=== PATIENT | female | born 1955 | race Caucasian/White ===

== ENCOUNTER 2021-08-02 14:49 | Inpatient (IN) ==
[2021-08-02 15:52] LABS: Bilirubin,Urine Negative (Negative); Blood,Urine Large (Negative); Clarity,Urine Ex.Turbid (Clear); Color,Urine Yellow (Yellow); Glucose,Urine (UA) Normal (Normal); Ketones,Urine 10 mg/dL (Negative); Leukocyte Esterase,Urine Large (Negative); Nitrite,Urine Negative (Negative); Protein,Urine >=600 mg/dL (Neg-Trace); Specific Gravity,Urine 1.025 (1.010-1.025); Urobilinogen,Urine Normal (Normal)
[2021-08-02 15:54] LABS: Bacteria,Urine Present per hpf (None-Few); Calcium Oxalate Crystals,Urine Present per hpf; Hyaline Casts,Urine Present per lpf (None Seen); Transitional Epi Cells,Urine Present per hpf (None-Few)
[2021-08-02 15:55] LABS: RBC,Urine Present per hpf (0-3); Renal Epithelial Cells,Urine Present per hpf (None-Few); WBC,Urine Present per hpf (0-3)
[2021-08-02 15:56] LABS: Uric Acid Crystals,Urine Present per hpf
[2021-08-02 16:22] LABS: Basophils # 0.1 K/mcL (0.0-0.2); Basophils % 0.3 %; Eosinophils % 0.1 %; Hematocrit 32.4 % (35.3-44.9); Hemoglobin 9.6 g/dL (11.5-15.4); Immature Granulocytes % 0.7 % (0-4); Lymphocytes # 2.4 K/mcL (0.6-4.6); Lymphocytes % 11.1 %; Mean Corpuscular HGB Conc 29.6 g/dL (31.6-35.5); Mean Corpuscular Hemoglobin 29.3 pg (28.0-33.3); Mean Corpuscular Volume 98.8 fL (83.0-100.0); Mean Platelet Volume 9.6 fL (9.4-12.4); Monocytes # 0.8 K/mcL (0.0-1.3); Monocytes % 3.7 %; Neutrophils # 17.8 K/mcL (1.6-8.9); Platelet Count 504 K/mcL (140-400); Red Blood Count 3.28 M/mcL (3.82-4.97); Red Cell Distribution Width 18.6 % (11.5-14.5); Segmented Neutrophils % 84.1 %; White Blood Count 21.2 K/mcL (4.3-11.1)
[2021-08-02 16:34] LABS: BUN/Creatinine Ratio 37 (6-26); Blood Urea Nitrogen 46 mg/dL (8-23); Calcium 11.3 mg/dL (8.6-10.3); Carbon Dioxide 17 mEq/L (23-29); Chloride 102 mEq/L (98-107); Glucose 82 mg/dL (70-105); Osmolality,Calculated 283 (280-300); Potassium 5.6 mEq/L (3.5-5.1); Sodium 131 mEq/L (136-145); eGFR For African Americans 52 (> 60); eGFR For Non-African Americans 43 (> 60)
[2021-08-02 17:54] LABS: Troponin I < 0.03 ng/mL (< 0.04)
[2021-08-02 19:37] LABS: Alanine Aminotransferase 10 Units/L (7-52); Albumin 3.6 g/dL (3.5-5.7); Albumin/Globulin Ratio 1.1 (1.1-2.2); Alkaline Phosphatase 121 Units/L (34-104); Aspartate Amino Transferase 21 Units/L (13-39); Bilirubin,Direct 0.2 mg/dL (0.0-0.2); Bilirubin,Indirect 0.1 mg/dL (0.0-1.0); Bilirubin,Total 0.3 mg/dL (0.3-1.0); Globulin 3.2 g/dL (2.4-3.5); Total Protein 6.8 g/dL (6.4-8.9)
[2021-08-02] MEDS ORDERED: Isovue-370 500 ML BOTTLE IVP ONE (20:32)
[2021-08-02 20:33] LABS: Influenza A PCR Negative (Negative); Influenza B PCR Negative (Negative); Resp. Syncytial Virus PCR Negative (Negative)
[2021-08-02] MEDS ORDERED: 0.9 % Sodium Chloride 1,000 ML IVC ONE (20:34)
[2021-08-02 20:39] LABS: SARS-CoV-2 by PCR (In House) Positive (Negative)
[2021-08-02] MEDS ORDERED: Cefepime HCl 2,000 MG in 0.9 % Sodium Chloride Mini Bag 100 ML IVPB STA (21:59)
[2021-08-02] MEDS ORDERED: Vancomycin 1,250 MG/262.5 ML IV.SOLN IVPB ONE (22:03)
[2021-08-02] MEDS ORDERED: *HR* Heparin 5,000 UNIT/ML VIAL IVP PRN ×2 (23:03)
[2021-08-02] MEDS ORDERED: *HR* Heparin 5,000 UNIT/ML VIAL IVP ONE (23:03)
[2021-08-03] MEDS: Heparin 25,000UNIT/250ML 1/2NS 25,000 UNIT/250 ML IV.SOLN IVC SCH (00:23)
[2021-08-03] MEDS ORDERED: 0.9 % Sodium Chloride 1,000 ML IVC ONE (00:42)
[2021-08-03] MEDS ORDERED: Acetaminophen 325 MG TABLET PO PRN (01:02)
[2021-08-03] MEDS ORDERED: Naloxone 0.4 MG/ML INJ IVP PRN (01:02)
[2021-08-03] MEDS ORDERED: Ondansetron ODT 4 MG TAB.RAPDIS SL PRN (01:02)
[2021-08-03] MEDS ORDERED: *HR* OxyCODONE Immed Rel 5 MG TABLET PO PRN (03:43)
[2021-08-03] MEDS ORDERED: D5% in Water 1,000 ML IVC PRN (03:53)
[2021-08-03] MEDS ORDERED: Dextrose Gel 15 GM/37.5 ML TUBE PO PRN ×2 (03:53)
[2021-08-03 04:44] LABS: Basophils # 0.1 K/mcL (0.0-0.2); Basophils % 0.2 %; Eosinophils % 0.2 %; Hematocrit 27.5 % (35.3-44.9); Immature Granulocytes % 0.7 % (0-4); Lymphocytes % 9.8 %; Mean Corpuscular HGB Conc 29.1 g/dL (31.6-35.5); Mean Corpuscular Hemoglobin 30.1 pg (28.0-33.3); Mean Corpuscular Volume 103.4 fL (83.0-100.0); Mean Platelet Volume 9.6 fL (9.4-12.4); Monocytes # 0.6 K/mcL (0.0-1.3); Monocytes % 2.9 %; Neutrophils # 17.6 K/mcL (1.6-8.9); Platelet Count 408 K/mcL (140-400); Red Blood Count 2.66 M/mcL (3.82-4.97); Red Cell Distribution Width 18.8 % (11.5-14.5); Segmented Neutrophils % 86.2 %; White Blood Count 20.5 K/mcL (4.3-11.1)
[2021-08-03 04:51] LABS: INR 1.5; Prothrombin Time 16.7 Seconds (9.4-12.1)
[2021-08-03 04:52] LABS: Heparin anti-factor XA UFH 1.26 IU/mL (0.30-0.70)
[2021-08-03 05:03] LABS: Alanine Aminotransferase 7 Units/L (7-52); Albumin 2.8 g/dL (3.5-5.7); Alkaline Phosphatase 89 Units/L (34-104); Aspartate Amino Transferase 16 Units/L (13-39); BUN/Creatinine Ratio 38 (6-26); Bilirubin,Total 0.3 mg/dL (0.3-1.0); Blood Urea Nitrogen 36 mg/dL (8-23); C-Reactive Protein 140 mg/L (Less than 10); Carbon Dioxide 13 mEq/L (23-29); Chloride 111 mEq/L (98-107); Globulin 2.7 g/dL (2.4-3.5); Glucose 73 mg/dL (70-105); Magnesium 1.7 mg/dL (1.6-2.6); Osmolality,Calculated 283 (280-300); Phosphorous 2.6 mg/dL (2.7-4.5); Potassium 4.3 mEq/L (3.5-5.1); Sodium 133 mEq/L (136-145); Total Protein 5.5 g/dL (6.4-8.9); eGFR For African Americans > 60 (> 60); eGFR For Non-African Americans 59 (> 60)
[2021-08-03 05:20] LABS: Ferritin 227 ng/mL (10-120)
[2021-08-03 06:16] LABS: Estimated Average Glucose 71 mg/dl; Hemoglobin A1C 4.1 %
[2021-08-03] MEDS: Celecoxib 200 MG CAPSULE PO SCH ×2 (07:49→08:24)
[2021-08-03] MEDS: Piperacillin/Tazobactam 3.375 GM in 0.9 % Sodium Chloride Mini Bag 100 ML IVPB SCH ×2 (07:50→18:04)
[2021-08-03] MEDS: Azithromycin 250 MG TABLET PO SCH ×2 (07:50→08:24)
[2021-08-03] MEDS: Ipratropium 1 PUFF INHALER IH SCH ×5 (08:10→23:28)
[2021-08-03] MEDS: Insulin LISPRO 300 UNITS/3 ML VIAL SUBQ SCH ×3 (08:15→18:05)
[2021-08-03] MEDS: (Vortioxetine Hydrobromide [Trintellix] 20 MG Tablet) PO SCH (08:22)
[2021-08-03] MEDS ORDERED: *HR* Metoprolol 5 MG/5 ML VIAL IVP ONE ×3 (08:22→23:44)
[2021-08-03] MEDS ORDERED: Dexamethasone Sodium Phos/PF 10 MG/ML VIAL IVP SCH (09:00)
[2021-08-03] MEDS ORDERED: 0.9 % Sodium Chloride 1,000 ML IVC SCH (09:15)
[2021-08-03] MEDS ORDERED: 0.9 % Sodium Chloride 500 ML IV ONE ×2 (10:14→11:17)
[2021-08-03] MEDS: *HR* Metoprolol 5 MG/5 ML VIAL IVP PRN ×2 (12:05→18:25)
[2021-08-03] MEDS ORDERED: Albumin 25% 25gram/100mL 25 GM/100 ML IV.SOLN IVPB ONE (21:01)
[2021-08-03] MEDS: Ascorbic Acid 500 MG TABLET PO SCH (21:21)
[2021-08-03 21:47] LABS: ABG Base Excess -15 mEq/L (-2 to 3); ABG HCO3 9 mEq/L (21-27); ABG Oxygen Saturation 95 % (95-98); ABG PCO2 15 mmHg (35-45); ABG PH 7.38 pH Units (7.32-7.45); ABG PO2 72 mmHg (85-104); ABG TCO2 9 mEq/L (20-26)
[2021-08-03] MEDS ORDERED: Sodium Bicarbonate 50 MEQ/50 ML VIAL IVP ONE (22:12)
[2021-08-03 22:50] LABS: Hematocrit 25.5 % (35.3-44.9); Hemoglobin 7.6 g/dL (11.5-15.4); Mean Corpuscular HGB Conc 29.8 g/dL (31.6-35.5); Mean Corpuscular Hemoglobin 30.2 pg (28.0-33.3); Mean Corpuscular Volume 101.2 fL (83.0-100.0); Mean Platelet Volume 9.1 fL (9.4-12.4); Platelet Count 421 K/mcL (140-400); Red Blood Count 2.52 M/mcL (3.82-4.97); Red Cell Distribution Width 18.7 % (11.5-14.5); White Blood Count 21.2 K/mcL (4.3-11.1)
[2021-08-03] MEDS ORDERED: Isovue-370 500 ML BOTTLE IVP ONE (23:15)
[2021-08-03 23:25] LABS: BUN/Creatinine Ratio 32 (6-26); Blood Urea Nitrogen 21 mg/dL (8-23); Calcium 10.5 mg/dL (8.6-10.3); Carbon Dioxide 9 mEq/L (23-29); Chloride 113 mEq/L (98-107); Glucose 124 mg/dL (70-105); Magnesium 1.5 mg/dL (1.6-2.6); Osmolality,Calculated 288 (280-300); Phosphorous 1.5 mg/dL (2.7-4.5); Potassium 4.5 mEq/L (3.5-5.1); Sodium 137 mEq/L (136-145); eGFR For African Americans > 60 (> 60); eGFR For Non-African Americans > 60 (> 60)
[2021-08-04] MEDS ORDERED: Vancomycin 1,250 MG/262.5 ML IV.SOLN IVPB SCH
[2021-08-04] MEDS ORDERED: Sodium Bicarbonate 75 MEQ in 0.45 % Sodium Chloride 1,000 ML IVC SCH (00:24)
[2021-08-04] MEDS ORDERED: Magnesium Sulfate 1 GM/102 ML PIGGYBACK IVPB ONE ×2 (00:25→21:17)
[2021-08-04] MEDS: Heparin 25,000UNIT/250ML 1/2NS 25,000 UNIT/250 ML IV.SOLN IVC SCH (01:48)
[2021-08-04] MEDS: Piperacillin/Tazobactam 3.375 GM in 0.9 % Sodium Chloride Mini Bag 100 ML IVPB SCH ×3 (02:34→16:09)
[2021-08-04] MEDS: *HR* Metoprolol 5 MG/5 ML VIAL IVP PRN ×2 (02:48→11:54)
[2021-08-04 03:09] LABS: Basophils % 0.2 %; Lymphocytes % 6.1 %; Mean Corpuscular Volume 106.1 fL (83.0-100.0)
[2021-08-04 03:10] LABS: Hematocrit 27.7 % (35.3-44.9); Hemoglobin 7.9 g/dL (11.5-15.4); Lymphocytes # 1.2 K/mcL (0.6-4.6); Mean Corpuscular HGB Conc 28.5 g/dL (31.6-35.5); Mean Corpuscular Hemoglobin 30.3 pg (28.0-33.3); Mean Platelet Volume 9.4 fL (9.4-12.4); Monocytes # 0.5 K/mcL (0.0-1.3); Monocytes % 2.5 %; Neutrophils # 17.3 K/mcL (1.6-8.9); Platelet Count 443 K/mcL (140-400); Red Blood Count 2.61 M/mcL (3.82-4.97); Red Cell Distribution Width 18.9 % (11.5-14.5); Segmented Neutrophils % 90.2 %; White Blood Count 19.2 K/mcL (4.3-11.1)
[2021-08-04 03:27] LABS: Alanine Aminotransferase 7 Units/L (7-52); Albumin 3.7 g/dL (3.5-5.7); Albumin/Globulin Ratio 1.3 (1.1-2.2); Alkaline Phosphatase 96 Units/L (34-104); Aspartate Amino Transferase 16 Units/L (13-39); BUN/Creatinine Ratio 29 (6-26); Bilirubin,Total 0.3 mg/dL (0.3-1.0); Blood Urea Nitrogen 18 mg/dL (8-23); Calcium 10.6 mg/dL (8.6-10.3); Carbon Dioxide 11 mEq/L (23-29); Chloride 113 mEq/L (98-107); Globulin 2.8 g/dL (2.4-3.5); Glucose 89 mg/dL (70-105); Osmolality,Calculated 291 (280-300); Potassium 4.3 mEq/L (3.5-5.1); Sodium 140 mEq/L (136-145); Total Protein 6.5 g/dL (6.4-8.9); eGFR For African Americans > 60 (> 60); eGFR For Non-African Americans > 60 (> 60)
[2021-08-04] MEDS: Ipratropium 1 PUFF INHALER IH SCH ×5 (03:56→20:28)
[2021-08-04] MEDS: Azithromycin 250 MG TABLET PO SCH (05:03)
[2021-08-04] MEDS: Insulin LISPRO 300 UNITS/3 ML VIAL SUBQ SCH ×3 (08:09→20:59)
[2021-08-04] MEDS: (Vortioxetine Hydrobromide [Trintellix] 20 MG Tablet) PO SCH (11:47)
[2021-08-04] MEDS: Magnesium Oxide 400 MG TABLET PO SCH (11:47)
[2021-08-04] MEDS: Ascorbic Acid 500 MG TABLET PO SCH ×2 (11:48→21:00)
[2021-08-04] MEDS: Cholecalciferol (D-3) 1,000 UNIT (25MCG) TABLET PO SCH (11:48)
[2021-08-04 12:15] LABS: ABG Base Excess -13 mEq/L (-2 to 3); ABG HCO3 10 mEq/L (21-27); ABG Oxygen Saturation 94 % (95-98); ABG PCO2 14 mmHg (35-45); ABG PH 7.45 pH Units (7.32-7.45); ABG PO2 65 mmHg (85-104); ABG TCO2 10 mEq/L (20-26)
[2021-08-04 12:45] LABS: Hematocrit 27.8 % (35.3-44.9); Hemoglobin 8.2 g/dL (11.5-15.4)
[2021-08-04 13:26] LABS: BUN/Creatinine Ratio 24 (6-26); Blood Urea Nitrogen 13 mg/dL (8-23); Calcium 10.5 mg/dL (8.6-10.3); Carbon Dioxide 12 mEq/L (23-29); Chloride 112 mEq/L (98-107); Glucose 109 mg/dL (70-105); Osmolality,Calculated 295 (280-300); Potassium 4.2 mEq/L (3.5-5.1); Sodium 142 mEq/L (136-145); eGFR For African Americans > 60 (> 60); eGFR For Non-African Americans > 60 (> 60)
[2021-08-04] MEDS ORDERED: *HR* LORazepam 2 MG/ML VIAL IVP ONE (15:18)
[2021-08-04] MEDS: *HR* Metoprolol 5 MG/5 ML VIAL IVP SCH ×2 (18:46→23:15)
[2021-08-04 23:45] LABS: ABG Base Excess -8 mEq/L (-2 to 3); ABG HCO3 15 mEq/L (21-27); ABG Oxygen Saturation 97 % (95-98); ABG PCO2 23 mmHg (35-45); ABG PH 7.43 pH Units (7.32-7.45); ABG PO2 81 mmHg (85-104); ABG TCO2 16 mEq/L (20-26); Blood Gas Modality 3LPM
[2021-08-05] MEDS: Ipratropium 1 PUFF INHALER IH SCH ×6 (00:20→19:49)
[2021-08-05] MEDS: Piperacillin/Tazobactam 3.375 GM in 0.9 % Sodium Chloride Mini Bag 100 ML IVPB SCH ×4 (01:23→23:42)
[2021-08-05 01:33] LABS: Magnesium 1.8 mg/dL (1.6-2.6); Phosphorous 1.9 mg/dL (2.7-4.5)
[2021-08-05] MEDS: Azithromycin 250 MG TABLET PO SCH (05:03)
[2021-08-05] MEDS: *HR* Metoprolol 5 MG/5 ML VIAL IVP SCH ×4 (05:18→23:38)
[2021-08-05] MEDS: Celecoxib 200 MG CAPSULE PO SCH (05:19)
[2021-08-05] MEDS: (Vortioxetine Hydrobromide [Trintellix] 20 MG Tablet) PO SCH (07:41)
[2021-08-05] MEDS: Ascorbic Acid 500 MG TABLET PO SCH ×3 (07:41→21:17)
[2021-08-05] MEDS: Magnesium Oxide 400 MG TABLET PO SCH (07:41)
[2021-08-05] MEDS: Cholecalciferol (D-3) 1,000 UNIT (25MCG) TABLET PO SCH (07:42)
[2021-08-05] MEDS ORDERED: 0.9 % Sodium Chloride 500 ML ONE (07:49)
[2021-08-05] MEDS: Insulin LISPRO 300 UNITS/3 ML VIAL SUBQ SCH ×3 (07:56→16:26)
[2021-08-05 08:25] LABS: Basophils % 0.2 %; Hematocrit 25.7 % (35.3-44.9); Hemoglobin 7.7 g/dL (11.5-15.4); Immature Granulocytes % 2.3 % (0-4); Lymphocytes # 1.3 K/mcL (0.6-4.6); Lymphocytes % 13.5 %; Mean Corpuscular Hemoglobin 29.5 pg (28.0-33.3); Mean Corpuscular Volume 98.5 fL (83.0-100.0); Mean Platelet Volume 8.8 fL (9.4-12.4); Monocytes # 0.4 K/mcL (0.0-1.3); Monocytes % 3.9 %; Neutrophils # 7.7 K/mcL (1.6-8.9); Platelet Count 381 K/mcL (140-400); Red Blood Count 2.61 M/mcL (3.82-4.97); Red Cell Distribution Width 19.1 % (11.5-14.5); Segmented Neutrophils % 80.1 %; White Blood Count 9.6 K/mcL (4.3-11.1)
[2021-08-05 09:16] LABS: Alanine Aminotransferase 8 Units/L (7-52); Albumin 3.2 g/dL (3.5-5.7); Albumin/Globulin Ratio 1.1 (1.1-2.2); Alkaline Phosphatase 93 Units/L (34-104); Aspartate Amino Transferase 17 Units/L (13-39); BUN/Creatinine Ratio 24 (6-26); Bilirubin,Total 0.3 mg/dL (0.3-1.0); Blood Urea Nitrogen 13 mg/dL (8-23); Calcium 10.3 mg/dL (8.6-10.3); Carbon Dioxide 19 mEq/L (23-29); Chloride 116 mEq/L (98-107); Globulin 2.8 g/dL (2.4-3.5); Glucose 88 mg/dL (70-105); Osmolality,Calculated 300 (280-300); Potassium 3.6 mEq/L (3.5-5.1); Sodium 145 mEq/L (136-145); eGFR For African Americans > 60 (> 60); eGFR For Non-African Americans > 60 (> 60)
[2021-08-05] MEDS ORDERED: Ringers Solution, Lactated 1,000 ML IVC SCH (11:30)
[2021-08-05] MEDS: Ringers Solution, Lactated 1,000 ML IVC SCH (13:30)
[2021-08-05] MEDS: Heparin 25,000UNIT/250ML 1/2NS 25,000 UNIT/250 ML IV.SOLN IVC SCH (13:45)
[2021-08-06] MEDS: Ipratropium 1 PUFF INHALER IH SCH ×7 (00:18→23:21)
[2021-08-06] MEDS: *HR* Metoprolol 5 MG/5 ML VIAL IVP PRN (01:58)
[2021-08-06 02:25] LABS: Basophils % 0.4 %; Hematocrit 29.6 % (35.3-44.9); Hemoglobin 9.1 g/dL (11.5-15.4); Lymphocytes # 1.7 K/mcL (0.6-4.6); Lymphocytes % 16.7 %; Mean Corpuscular HGB Conc 30.7 g/dL (31.6-35.5); Mean Corpuscular Hemoglobin 29.9 pg (28.0-33.3); Monocytes # 0.5 K/mcL (0.0-1.3); Neutrophils # 7.6 K/mcL (1.6-8.9); Platelet Count 398 K/mcL (140-400); Red Blood Count 3.04 M/mcL (3.82-4.97); Red Cell Distribution Width 19.1 % (11.5-14.5); Segmented Neutrophils % 73.9 %; White Blood Count 10.3 K/mcL (4.3-11.1)
[2021-08-06 02:30] LABS: Mean Corpuscular Volume 97.4 fL (83.0-100.0)
[2021-08-06 02:38] LABS: Alanine Aminotransferase 8 Units/L (7-52); Albumin/Globulin Ratio 1.1 (1.1-2.2); Alkaline Phosphatase 86 Units/L (34-104); Aspartate Amino Transferase 19 Units/L (13-39); BUN/Creatinine Ratio 33 (6-26); Bilirubin,Total 0.3 mg/dL (0.3-1.0); Blood Urea Nitrogen 16 mg/dL (8-23); C-Reactive Protein 44 mg/L (Less than 10); Calcium 9.5 mg/dL (8.6-10.3); Carbon Dioxide 19 mEq/L (23-29); Chloride 117 mEq/L (98-107); Globulin 2.7 g/dL (2.4-3.5); Glucose 90 mg/dL (70-105); Lactate Dehydrogenase 159 Units/L (140-271); Magnesium 1.3 mg/dL (1.6-2.6); Osmolality,Calculated 293 (280-300); Potassium 3.5 mEq/L (3.5-5.1); Sodium 141 mEq/L (136-145); Total Protein 5.7 g/dL (6.4-8.9); eGFR For African Americans > 60 (> 60); eGFR For Non-African Americans > 60 (> 60)
[2021-08-06 02:56] LABS: Ferritin 443 ng/mL (10-120)
[2021-08-06 04:47] LABS: ABG Base Excess -5 mEq/L (-2 to 3); ABG HCO3 17 mEq/L (21-27); ABG Oxygen Saturation 95 % (95-98); ABG PCO2 23 mmHg (35-45); ABG PH 7.48 pH Units (7.32-7.45); ABG PO2 68 mmHg (85-104); ABG TCO2 18 mEq/L (20-26)
[2021-08-06] MEDS: *HR* Metoprolol 5 MG/5 ML VIAL IVP SCH ×3 (06:12→17:29)
[2021-08-06] MEDS: Ringers Solution, Lactated 1,000 ML IVC SCH ×3 (06:34→15:01)
[2021-08-06] MEDS: Heparin 25,000UNIT/250ML 1/2NS 25,000 UNIT/250 ML IV.SOLN IVC SCH (07:31)
[2021-08-06] MEDS: Azithromycin 250 MG TABLET PO SCH (07:31)
[2021-08-06] MEDS: (Vortioxetine Hydrobromide [Trintellix] 20 MG Tablet) PO SCH (07:32)
[2021-08-06] MEDS: Cholecalciferol (D-3) 1,000 UNIT (25MCG) TABLET PO SCH (07:33)
[2021-08-06] MEDS: Ascorbic Acid 500 MG TABLET PO SCH ×2 (07:33→20:56)
[2021-08-06] MEDS: Insulin LISPRO 300 UNITS/3 ML VIAL SUBQ SCH ×3 (08:22→17:27)
[2021-08-06] MEDS: Piperacillin/Tazobactam 3.375 GM in 0.9 % Sodium Chloride Mini Bag 100 ML IVPB SCH ×2 (08:25→17:26)
[2021-08-06] MEDS: Magnesium Oxide 400 MG TABLET PO SCH (11:02)
[2021-08-06] MEDS: *HR* LORazepam 2 MG/ML VIAL IVP PRN (15:00)
[2021-08-06] MEDS: Pantoprazole 40 MG VIAL IVP SCH (17:29)
[2021-08-07] MEDS: Piperacillin/Tazobactam 3.375 GM in 0.9 % Sodium Chloride Mini Bag 100 ML IVPB SCH ×4 (00:18→23:19)
[2021-08-07] MEDS: *HR* Metoprolol 5 MG/5 ML VIAL IVP SCH ×5 (00:18→20:16)
[2021-08-07] MEDS: Ringers Solution, Lactated 1,000 ML IVC SCH ×3 (02:00→23:11)
[2021-08-07] MEDS: Ipratropium 1 PUFF INHALER IH SCH ×5 (03:56→20:12)
[2021-08-07] MEDS: Heparin 25,000UNIT/250ML 1/2NS 25,000 UNIT/250 ML IV.SOLN IVC SCH (04:33)
[2021-08-07] MEDS: *HR* LORazepam 2 MG/ML VIAL IVP PRN ×3 (04:33→23:21)
[2021-08-07] MEDS: Azithromycin 250 MG TABLET PO SCH (05:10)
[2021-08-07] MEDS: Pantoprazole 40 MG VIAL IVP SCH ×2 (06:02→17:41)
[2021-08-07] MEDS: Celecoxib 200 MG CAPSULE PO SCH (07:30)
[2021-08-07] MEDS: (Vortioxetine Hydrobromide [Trintellix] 20 MG Tablet) PO SCH (07:30)
[2021-08-07] MEDS: Magnesium Oxide 400 MG TABLET PO SCH (07:30)
[2021-08-07] MEDS: Ascorbic Acid 500 MG TABLET PO SCH ×2 (07:31→20:21)
[2021-08-07] MEDS: Cholecalciferol (D-3) 1,000 UNIT (25MCG) TABLET PO SCH (07:31)
[2021-08-07] MEDS: Insulin LISPRO 300 UNITS/3 ML VIAL SUBQ SCH ×3 (07:59→17:13)
[2021-08-07 08:08] LABS: Hematocrit 28.9 % (35.3-44.9); Hemoglobin 9.1 g/dL (11.5-15.4); Mean Corpuscular HGB Conc 31.5 g/dL (31.6-35.5); Mean Corpuscular Hemoglobin 29.6 pg (28.0-33.3); Mean Corpuscular Volume 94.1 fL (83.0-100.0); Monocytes # 0.5 K/mcL (0.0-1.3); Nucleated Red Blood Cells 0.2 /100 WBC (0); Platelet Count 299 K/mcL (140-400); Red Blood Count 3.07 M/mcL (3.82-4.97); Red Cell Distribution Width 18.6 % (11.5-14.5)
[2021-08-07 08:26] LABS: Alanine Aminotransferase 8 Units/L (7-52); Albumin 2.7 g/dL (3.5-5.7); Albumin/Globulin Ratio 1.1 (1.1-2.2); Alkaline Phosphatase 74 Units/L (34-104); Aspartate Amino Transferase 23 Units/L (13-39); BUN/Creatinine Ratio 56 (6-26); Bilirubin,Total 0.3 mg/dL (0.3-1.0); Blood Urea Nitrogen 22 mg/dL (8-23); Calcium 8.7 mg/dL (8.6-10.3); Carbon Dioxide 19 mEq/L (23-29); Chloride 114 mEq/L (98-107); Globulin 2.4 g/dL (2.4-3.5); Glucose 101 mg/dL (70-105); Osmolality,Calculated 295 (280-300); Potassium 3.6 mEq/L (3.5-5.1); Sodium 141 mEq/L (136-145); Total Protein 5.1 g/dL (6.4-8.9); eGFR For African Americans > 60 (> 60); eGFR For Non-African Americans > 60 (> 60)
[2021-08-07 08:33] LABS: Lymphocytes # 2.5 K/mcL (0.6-4.6); Neutrophils # 5.9 K/mcL (1.6-8.9)
[2021-08-07 08:34] LABS: Platelet Estimate Normal (Normal)
[2021-08-07 08:35] LABS: Anisocytosis 1+ (Not Present); Polychromasia 1+ (Not Present)
[2021-08-07] MEDS ORDERED: Ringers Solution, Lactated 1,000 ML ONE (11:12)
[2021-08-08] MEDS: Ipratropium 1 PUFF INHALER IH SCH ×7 (00:14→23:20)
[2021-08-08] MEDS: Pantoprazole 40 MG VIAL IVP SCH ×2 (05:19→18:50)
[2021-08-08 05:51] LABS: Hematocrit 22.5 % (35.3-44.9); Mean Corpuscular HGB Conc 32.4 g/dL (31.6-35.5); Mean Corpuscular Hemoglobin 30.5 pg (28.0-33.3); Mean Corpuscular Volume 94.1 fL (83.0-100.0); Mean Platelet Volume 9.4 fL (9.4-12.4); Platelet Count 220 K/mcL (140-400); Red Blood Count 2.39 M/mcL (3.82-4.97); Red Cell Distribution Width 18.2 % (11.5-14.5); White Blood Count 7.8 K/mcL (4.3-11.1)
[2021-08-08 05:57] LABS: Hemoglobin 7.3 g/dL (11.5-15.4)
[2021-08-08 06:14] LABS: Lymphocytes # 1.7 K/mcL (0.6-4.6); Monocytes # 0.2 K/mcL (0.0-1.3); Neutrophils # 5.6 K/mcL (1.6-8.9)
[2021-08-08 06:15] LABS: Anisocytosis 1+ (Not Present); Platelet Estimate Normal (Normal)
[2021-08-08 06:33] LABS: Alanine Aminotransferase 7 Units/L (7-52); Albumin 2.5 g/dL (3.5-5.7); Albumin/Globulin Ratio 1.2 (1.1-2.2); Alkaline Phosphatase 66 Units/L (34-104); Aspartate Amino Transferase 22 Units/L (13-39); BUN/Creatinine Ratio 43 (6-26); Bilirubin,Total 0.3 mg/dL (0.3-1.0); Blood Urea Nitrogen 13 mg/dL (8-23); Calcium 8.1 mg/dL (8.6-10.3); Carbon Dioxide 21 mEq/L (23-29); Chloride 108 mEq/L (98-107); Globulin 2.1 g/dL (2.4-3.5); Glucose 65 mg/dL (70-105); Osmolality,Calculated 284 (280-300); Potassium 2.7 mEq/L (3.5-5.1); Sodium 138 mEq/L (136-145); Total Protein 4.6 g/dL (6.4-8.9); eGFR For African Americans > 60 (> 60); eGFR For Non-African Americans > 60 (> 60)
[2021-08-08] MEDS: *HR* Dextrose 50 % in Water (Syg) 50 ML SYRINGE IVP PRN (07:34)
[2021-08-08] MEDS: *HR* Metoprolol 5 MG/5 ML VIAL IVP SCH ×3 (07:36→18:50)
[2021-08-08] MEDS: Piperacillin/Tazobactam 3.375 GM in 0.9 % Sodium Chloride Mini Bag 100 ML IVPB SCH ×2 (07:37→16:02)
[2021-08-08] MEDS: Insulin LISPRO 300 UNITS/3 ML VIAL SUBQ SCH ×2 (07:39→13:32)
[2021-08-08] MEDS: Cholecalciferol (D-3) 1,000 UNIT (25MCG) TABLET PO SCH (07:40)
[2021-08-08] MEDS: (Vortioxetine Hydrobromide [Trintellix] 20 MG Tablet) PO SCH (07:40)
[2021-08-08] MEDS: Ascorbic Acid 500 MG TABLET PO SCH ×2 (07:40→19:54)
[2021-08-08] MEDS: Magnesium Oxide 400 MG TABLET PO SCH (07:53)
[2021-08-08] MEDS: Ringers Solution, Lactated 1,000 ML IVC SCH ×2 (10:40→19:53)
[2021-08-08 13:21] LABS: Hematocrit 23.6 % (35.3-44.9); Hemoglobin 7.7 g/dL (11.5-15.4)
[2021-08-08] MEDS: Morphine Sulfate 2 MG/ML SYRINGE IVP PRN (13:37)
[2021-08-08] MEDS: *HR* LORazepam 2 MG/ML VIAL IVP PRN (18:50)
[2021-08-08] MEDS: Heparin 25,000UNIT/250ML 1/2NS 25,000 UNIT/250 ML IV.SOLN IVC SCH (19:51)
[2021-08-09] MEDS: *HR* Metoprolol 5 MG/5 ML VIAL IVP SCH ×5 (00:28→23:58)
[2021-08-09] MEDS: Piperacillin/Tazobactam 3.375 GM in 0.9 % Sodium Chloride Mini Bag 100 ML IVPB SCH ×3 (00:29→15:45)
[2021-08-09 03:08] LABS: Hemoglobin 7.1 g/dL (11.5-15.4); Mean Corpuscular HGB Conc 32.3 g/dL (31.6-35.5); Mean Corpuscular Hemoglobin 29.8 pg (28.0-33.3); Mean Corpuscular Volume 92.4 fL (83.0-100.0); Mean Platelet Volume 9.6 fL (9.4-12.4); Nucleated Red Blood Cells 0.3 /100 WBC (0); Platelet Count 182 K/mcL (140-400); Red Blood Count 2.38 M/mcL (3.82-4.97); Red Cell Distribution Width 18.2 % (11.5-14.5); White Blood Count 6.1 K/mcL (4.3-11.1)
[2021-08-09 03:24] LABS: Heparin anti-factor XA UFH 0.7 IU/mL (0.30-0.70)
[2021-08-09 03:27] LABS: BUN/Creatinine Ratio 22 (6-26); Blood Urea Nitrogen 6 mg/dL (8-23); Calcium 8.2 mg/dL (8.6-10.3); Carbon Dioxide 24 mEq/L (23-29); Chloride 107 mEq/L (98-107); Glucose 76 mg/dL (70-105); Magnesium 1.4 mg/dL (1.6-2.6); Osmolality,Calculated 284 (280-300); Phosphorous 3.1 mg/dL (2.7-4.5); Sodium 139 mEq/L (136-145); eGFR For African Americans > 60 (> 60); eGFR For Non-African Americans > 60 (> 60)
[2021-08-09 03:31] LABS: Lymphocytes # 3.8 K/mcL (0.6-4.6); Monocytes # 0.1 K/mcL (0.0-1.3); Neutrophils # 2.1 K/mcL (1.6-8.9)
[2021-08-09] MEDS: Ringers Solution, Lactated 1,000 ML IVC SCH ×3 (03:47→16:33)
[2021-08-09] MEDS: Ipratropium 1 PUFF INHALER IH SCH ×5 (04:33→20:41)
[2021-08-09] MEDS: Pantoprazole 40 MG VIAL IVP SCH ×2 (06:20→16:32)
[2021-08-09] MEDS: *HR* Dextrose 50 % in Water (Syg) 50 ML SYRINGE IVP PRN (06:28)
[2021-08-09] MEDS: Celecoxib 200 MG CAPSULE PO SCH (07:21)
[2021-08-09] MEDS: (Vortioxetine Hydrobromide [Trintellix] 20 MG Tablet) PO SCH (07:22)
[2021-08-09] MEDS: Cholecalciferol (D-3) 1,000 UNIT (25MCG) TABLET PO SCH (07:22)
[2021-08-09] MEDS: Ascorbic Acid 500 MG TABLET PO SCH ×2 (07:22→20:21)
[2021-08-09] MEDS: Magnesium Oxide 400 MG TABLET PO SCH (07:22)
[2021-08-09 11:21] LABS: Hematocrit 25.7 % (35.3-44.9); Hemoglobin 8.1 g/dL (11.5-15.4)
[2021-08-09] MEDS: Thiamine (B-1) 100 MG in 0.9 % Sodium Chloride 50 ML IVPB SCH (18:36)
[2021-08-09] MEDS: Morphine Sulfate 2 MG/ML SYRINGE IVP PRN (20:43)
[2021-08-09] MEDS: *HR* Metoprolol 5 MG/5 ML VIAL IVP PRN (20:43)
[2021-08-09] MEDS: *HR* LORazepam 2 MG/ML VIAL IVP PRN (22:45)
[2021-08-09] MEDS ORDERED: Haloperidol Lactate 5 MG/ML VIAL IVP ONE (23:38)
[2021-08-10] MEDS: Piperacillin/Tazobactam 3.375 GM in 0.9 % Sodium Chloride Mini Bag 100 ML IVPB SCH ×2 (00:05→10:56)
[2021-08-10] MEDS: Ipratropium 1 PUFF INHALER IH SCH ×6 (00:11→21:07)
[2021-08-10 04:30] LABS: Basophils # 0.1 K/mcL (0.0-0.2); Basophils % 0.7 %; Eosinophils % 0.1 %; Hematocrit 26.7 % (35.3-44.9); Hemoglobin 8.4 g/dL (11.5-15.4); Immature Granulocytes % 11.1 % (0-4); Lymphocytes # 2.8 K/mcL (0.6-4.6); Lymphocytes % 38.6 %; Mean Corpuscular HGB Conc 31.5 g/dL (31.6-35.5); Mean Corpuscular Hemoglobin 30.2 pg (28.0-33.3); Mean Platelet Volume 9.3 fL (9.4-12.4); Monocytes # 0.7 K/mcL (0.0-1.3); Monocytes % 8.9 %; Nucleated Red Blood Cells 0.3 /100 WBC (0); Platelet Count 171 K/mcL (140-400); Red Blood Count 2.78 M/mcL (3.82-4.97); Red Cell Distribution Width 18.5 % (11.5-14.5); Segmented Neutrophils % 40.6 %; White Blood Count 7.3 K/mcL (4.3-11.1)
[2021-08-10 04:53] LABS: Alanine Aminotransferase 13 Units/L (7-52); Albumin 2.9 g/dL (3.5-5.7); Albumin/Globulin Ratio 1.2 (1.1-2.2); Aspartate Amino Transferase 26 Units/L (13-39); BUN/Creatinine Ratio 20 (6-26); Bilirubin,Total 0.3 mg/dL (0.3-1.0); Blood Urea Nitrogen 7 mg/dL (8-23); Calcium 8.6 mg/dL (8.6-10.3); Carbon Dioxide 26 mEq/L (23-29); Chloride 107 mEq/L (98-107); Globulin 2.5 g/dL (2.4-3.5); Glucose 140 mg/dL (70-105); Osmolality,Calculated 290 (280-300); Potassium 3.1 mEq/L (3.5-5.1); Sodium 140 mEq/L (136-145); Total Protein 5.4 g/dL (6.4-8.9); eGFR For African Americans > 60 (> 60); eGFR For Non-African Americans > 60 (> 60)
[2021-08-10 05:02] LABS: Anisocytosis 2+ (Not Present); Platelet Estimate Normal (Normal); Polychromasia 1+ (Not Present)
[2021-08-10] MEDS: *HR* Metoprolol 5 MG/5 ML VIAL IVP SCH ×2 (05:13→13:22)
[2021-08-10] MEDS: Ringers Solution, Lactated 1,000 ML IVC SCH ×2 (05:13→15:46)
[2021-08-10] MEDS: Pantoprazole 40 MG VIAL IVP SCH ×2 (05:13→18:04)
[2021-08-10 06:44] LABS: Alkaline Phosphatase 89 Units/L (34-104)
[2021-08-10] MEDS: Magnesium Oxide 400 MG TABLET PO SCH (11:06)
[2021-08-10] MEDS: (Vortioxetine Hydrobromide [Trintellix] 20 MG Tablet) PO SCH (11:06)
[2021-08-10] MEDS: Cholecalciferol (D-3) 1,000 UNIT (25MCG) TABLET PO SCH (11:07)
[2021-08-10] MEDS: Ascorbic Acid 500 MG TABLET PO SCH ×2 (11:07→21:25)
[2021-08-10] MEDS: Thiamine (B-1) 100 MG in 0.9 % Sodium Chloride 50 ML IVPB SCH (11:28)
[2021-08-10] MEDS: Melatonin 3 MG TABLET PO PRN (21:25)
[2021-08-10] MEDS ORDERED: D5% in Water 1,000 ML IVC PRN (23:23)
[2021-08-10] MEDS ORDERED: Dextrose Gel 15 GM/37.5 ML TUBE PO PRN ×2 (23:23)
[2021-08-10] MEDS ORDERED: *HR* Dextrose 50 % in Water (Syg) 50 ML SYRINGE IVP PRN (23:23)
[2021-08-11] MEDS: Ipratropium 1 PUFF INHALER IH SCH ×6 (00:07→19:53)
[2021-08-11] MEDS: Heparin 25,000UNIT/250ML 1/2NS 25,000 UNIT/250 ML IV.SOLN IVC SCH ×2 (00:42→21:46)
[2021-08-11] MEDS: Insulin LISPRO 300 UNITS/3 ML VIAL SUBQ SCH ×5 (00:54→20:39)
[2021-08-11] MEDS: Pantoprazole 40 MG VIAL IVP SCH (05:30)
[2021-08-11 06:54] LABS: Hematocrit 26.9 % (35.3-44.9); Hemoglobin 8.5 g/dL (11.5-15.4); Mean Corpuscular HGB Conc 31.6 g/dL (31.6-35.5); Mean Corpuscular Hemoglobin 30.1 pg (28.0-33.3); Mean Corpuscular Volume 95.4 fL (83.0-100.0); Mean Platelet Volume 10.6 fL (9.4-12.4); Nucleated Red Blood Cells 0.4 /100 WBC (0); Platelet Count 200 K/mcL (140-400); Red Blood Count 2.82 M/mcL (3.82-4.97); Red Cell Distribution Width 18.6 % (11.5-14.5)
[2021-08-11 08:50] LABS: Anisocytosis 1+ (Not Present); Lymphocytes # 2.7 K/mcL (0.6-4.6); Monocytes # 0.3 K/mcL (0.0-1.3); Platelet Estimate Normal (Normal)
[2021-08-11 10:00] LABS: BUN/Creatinine Ratio 18 (6-26); Blood Urea Nitrogen 6 mg/dL (8-23); Carbon Dioxide 25 mEq/L (23-29); Chloride 106 mEq/L (98-107); Glucose 149 mg/dL (70-105); Magnesium 1.3 mg/dL (1.6-2.6); Osmolality,Calculated 292 (280-300); Phosphorous 2.2 mg/dL (2.7-4.5); Sodium 141 mEq/L (136-145); eGFR For African Americans > 60 (> 60); eGFR For Non-African Americans > 60 (> 60)
[2021-08-11] MEDS: Cholecalciferol (D-3) 1,000 UNIT (25MCG) TABLET PO SCH (10:29)
[2021-08-11] MEDS: Magnesium Oxide 400 MG TABLET PO SCH (10:29)
[2021-08-11] MEDS: Ascorbic Acid 500 MG TABLET PO SCH ×2 (10:29→20:45)
[2021-08-11] MEDS: Thiamine (B-1) 100 MG in 0.9 % Sodium Chloride 50 ML IVPB SCH (10:30)
[2021-08-11] MEDS: (Vortioxetine Hydrobromide [Trintellix] 20 MG Tablet) PO SCH (10:36)
[2021-08-11] MEDS: Celecoxib 200 MG CAPSULE PO SCH (10:45)
[2021-08-11] MEDS ORDERED: Magnesium Sulfate 1 GM/102 ML PIGGYBACK IVPB ONE (14:00)
[2021-08-11] MEDS ORDERED: Potassium Phosphate 44 MEQ in 0.9 % Sodium Chloride 250 ML IVPB ONE (15:00)
[2021-08-11] MEDS: Melatonin 3 MG TABLET PO PRN (20:38)
[2021-08-12] MEDS: Ipratropium 1 PUFF INHALER IH SCH ×7 (00:14→23:35)
[2021-08-12 07:19] LABS: Hematocrit 27.2 % (35.3-44.9); Hemoglobin 8.4 g/dL (11.5-15.4); Mean Corpuscular HGB Conc 30.9 g/dL (31.6-35.5); Mean Corpuscular Hemoglobin 29.9 pg (28.0-33.3); Mean Corpuscular Volume 96.8 fL (83.0-100.0); Mean Platelet Volume 10.6 fL (9.4-12.4); Nucleated Red Blood Cells 0.6 /100 WBC (0); Platelet Count 242 K/mcL (140-400); Red Blood Count 2.81 M/mcL (3.82-4.97); Red Cell Distribution Width 19.1 % (11.5-14.5); White Blood Count 8.5 K/mcL (4.3-11.1)
[2021-08-12 07:58] LABS: BUN/Creatinine Ratio 26 (6-26); Blood Urea Nitrogen 8 mg/dL (8-23); Calcium 9.3 mg/dL (8.6-10.3); Carbon Dioxide 27 mEq/L (23-29); Chloride 106 mEq/L (98-107); Glucose 121 mg/dL (70-105); Magnesium 1.5 mg/dL (1.6-2.6); Osmolality,Calculated 292 (280-300); Phosphorous 4.7 mg/dL (2.7-4.5); Potassium 3.8 mEq/L (3.5-5.1); Sodium 141 mEq/L (136-145); eGFR For African Americans > 60 (> 60); eGFR For Non-African Americans > 60 (> 60)
[2021-08-12] MEDS: Thiamine (B-1) 100 MG TABLET PO SCH (09:51)
[2021-08-12] MEDS: Cholecalciferol (D-3) 1,000 UNIT (25MCG) TABLET PO SCH (09:51)
[2021-08-12] MEDS: Cyanocobalamin (B-12) 1,000 MCG TABLET PO SCH (09:51)
[2021-08-12] MEDS: Ascorbic Acid 500 MG TABLET PO SCH (09:51)
[2021-08-12] MEDS: Magnesium Oxide 400 MG TABLET PO SCH (09:51)
[2021-08-12] MEDS: Insulin LISPRO 300 UNITS/3 ML VIAL SUBQ SCH ×3 (09:52→17:33)
[2021-08-12] MEDS: Heparin 25,000UNIT/250ML 1/2NS 25,000 UNIT/250 ML IV.SOLN IVC SCH ×2 (09:53)
[2021-08-12 11:50] LABS: Anisocytosis 1+ (Not Present); Lymphocytes # 3.8 K/mcL (0.6-4.6); Monocytes # 0.8 K/mcL (0.0-1.3); Neutrophils # 3.4 K/mcL (1.6-8.9); Platelet Estimate Normal (Normal); Reactive Lymphocytes Present (Not Present)
[2021-08-12] MEDS ORDERED: *HR* Propofol 200 MG/20 ML VIAL IVP ONE (14:04)
[2021-08-12] MEDS ORDERED: *HR* Succinylcholine 200 MG/10 ML VIAL IVP ONE (14:04)
[2021-08-12] MEDS ORDERED: *HR* FentaNYL (PF) 100 MCG/2 ML VIAL ONE (14:05)
[2021-08-12] MEDS ORDERED: *HR* Rocuronium Bromide 50 MG/5 ML VIAL ONE (14:05)
[2021-08-12] MEDS ORDERED: Lidocaine HCL 4 ML Topical Solution (Laryng-O-Jet Kit Sterile Pak) TP ONE (14:05)
[2021-08-12] MEDS ORDERED: Lidocaine -MPF 2% 5 ML VIAL ONE (14:05)
[2021-08-12] MEDS ORDERED: ceFAZolin 1,000 MG in 0.9 % Sodium Chloride 100 ML IVPB ONE (15:00)
[2021-08-12] MEDS: *HR* Metoprolol 5 MG/5 ML VIAL IVP PRN (21:42)
[2021-08-13] MEDS: Insulin LISPRO 300 UNITS/3 ML VIAL SUBQ SCH ×5 (00:10→19:54)
[2021-08-13] MEDS: Ascorbic Acid 500 MG TABLET PO SCH ×2 (00:12→10:29)
[2021-08-13] MEDS: Ipratropium 1 PUFF INHALER IH SCH ×6 (03:28→23:33)
[2021-08-13 05:12] LABS: Basophils % 0.3 %; Hematocrit 26.9 % (35.3-44.9); Hemoglobin 8.2 g/dL (11.5-15.4); Immature Granulocytes % 3.6 % (0-4); Lymphocytes # 2.6 K/mcL (0.6-4.6); Lymphocytes % 22.1 %; Mean Corpuscular HGB Conc 30.5 g/dL (31.6-35.5); Mean Corpuscular Hemoglobin 29.8 pg (28.0-33.3); Mean Corpuscular Volume 97.8 fL (83.0-100.0); Mean Platelet Volume 10.4 fL (9.4-12.4); Monocytes % 8.3 %; Neutrophils # 7.8 K/mcL (1.6-8.9); Nucleated Red Blood Cells 0.3 /100 WBC (0); Platelet Count 285 K/mcL (140-400); Red Blood Count 2.75 M/mcL (3.82-4.97); Red Cell Distribution Width 18.8 % (11.5-14.5); Segmented Neutrophils % 65.7 %; White Blood Count 11.9 K/mcL (4.3-11.1)
[2021-08-13 05:31] LABS: BUN/Creatinine Ratio 25 (6-26); Blood Urea Nitrogen 7 mg/dL (8-23); Carbon Dioxide 26 mEq/L (23-29); Chloride 106 mEq/L (98-107); Glucose 94 mg/dL (70-105); Magnesium 1.5 mg/dL (1.6-2.6); Osmolality,Calculated 286 (280-300); Phosphorous 3.6 mg/dL (2.7-4.5); Potassium 3.6 mEq/L (3.5-5.1); Sodium 139 mEq/L (136-145); eGFR For African Americans > 60 (> 60); eGFR For Non-African Americans > 60 (> 60)
[2021-08-13] MEDS: Heparin 25,000UNIT/250ML 1/2NS 25,000 UNIT/250 ML IV.SOLN IVC SCH (10:28)
[2021-08-13] MEDS: Cholecalciferol (D-3) 1,000 UNIT (25MCG) TABLET PO SCH (10:29)
[2021-08-13] MEDS: Cyanocobalamin (B-12) 1,000 MCG TABLET PO SCH (10:29)
[2021-08-13] MEDS: Magnesium Oxide 400 MG TABLET PO SCH (10:29)
[2021-08-13] MEDS: Thiamine (B-1) 100 MG TABLET PO SCH (10:30)
[2021-08-13] MEDS: Apixaban 5 MG TABLET GTUBE SCH ×2 (10:30→19:52)
[2021-08-13] MEDS: Celecoxib 200 MG CAPSULE PO SCH ×2 (10:33→12:18)
[2021-08-13] MEDS ORDERED: Acetaminophen 325 MG TABLET PO PRN (11:35)
[2021-08-13] MEDS ORDERED: Cyanocobalamin (B-12) 1,000 MCG TABLET PO SCH (11:39)
[2021-08-13] MEDS: Ascorbic Acid 500 MG TABLET GTUBE SCH (18:09)
[2021-08-13] MEDS: Ferrous Sulfate Oral Soln 300 MG/5 ML UDC GTUBE SCH (18:09)
[2021-08-13] MEDS: Melatonin 3 MG TABLET GTUBE PRN (20:01)
[2021-08-14] MEDS: Ipratropium 1 PUFF INHALER IH SCH ×6 (03:37→23:43)
[2021-08-14 06:09] LABS: Basophils % 0.2 %; Eosinophils % 0.2 %; Hematocrit 26.1 % (35.3-44.9); Hemoglobin 7.9 g/dL (11.5-15.4); Immature Granulocytes % 1.6 % (0-4); Lymphocytes # 2.1 K/mcL (0.6-4.6); Lymphocytes % 16.8 %; Mean Corpuscular HGB Conc 30.3 g/dL (31.6-35.5); Mean Corpuscular Hemoglobin 29.8 pg (28.0-33.3); Mean Corpuscular Volume 98.5 fL (83.0-100.0); Mean Platelet Volume 10.4 fL (9.4-12.4); Monocytes # 0.9 K/mcL (0.0-1.3); Monocytes % 7.4 %; Neutrophils # 9.3 K/mcL (1.6-8.9); Nucleated Red Blood Cells 0.2 /100 WBC (0); Platelet Count 310 K/mcL (140-400); Red Blood Count 2.65 M/mcL (3.82-4.97); Red Cell Distribution Width 18.9 % (11.5-14.5); Segmented Neutrophils % 73.8 %; White Blood Count 12.6 K/mcL (4.3-11.1)
[2021-08-14 06:30] LABS: BUN/Creatinine Ratio 28 (6-26); Blood Urea Nitrogen 9 mg/dL (8-23); Calcium 8.9 mg/dL (8.6-10.3); Carbon Dioxide 27 mEq/L (23-29); Chloride 106 mEq/L (98-107); Glucose 182 mg/dL (70-105); Magnesium 1.6 mg/dL (1.6-2.6); Osmolality,Calculated 291 (280-300); Phosphorous 3.2 mg/dL (2.7-4.5); Potassium 3.6 mEq/L (3.5-5.1); Sodium 139 mEq/L (136-145); eGFR For African Americans > 60 (> 60); eGFR For Non-African Americans > 60 (> 60)
[2021-08-14] MEDS: Ascorbic Acid 500 MG TABLET GTUBE SCH ×2 (09:50→17:34)
[2021-08-14] MEDS: Magnesium Oxide 400 MG TABLET GTUBE SCH (09:50)
[2021-08-14] MEDS: Thiamine (B-1) 100 MG TABLET GTUBE SCH (09:50)
[2021-08-14] MEDS: Cholecalciferol (D-3) 1,000 UNIT (25MCG) TABLET GTUBE SCH (09:51)
[2021-08-14] MEDS: Apixaban 5 MG TABLET GTUBE SCH ×2 (09:51→20:50)
[2021-08-14] MEDS: Ferrous Sulfate Oral Soln 300 MG/5 ML UDC GTUBE SCH ×2 (09:53→17:34)
[2021-08-14] MEDS: Insulin LISPRO 300 UNITS/3 ML VIAL SUBQ SCH ×4 (09:59→22:00)
[2021-08-14] MEDS: Metoclopramide 10 MG/2 ML VIAL IVP SCH ×2 (13:42→17:33)
[2021-08-14] MEDS: Melatonin 3 MG TABLET GTUBE PRN (20:50)
[2021-08-15] MEDS: Metoclopramide 10 MG/2 ML VIAL IVP SCH ×3 (01:08→11:53)
[2021-08-15 02:53] LABS: Basophils % 0.1 %; Eosinophils # 0.1 K/mcL (0.0-0.6); Eosinophils % 0.5 %; Hematocrit 27.5 % (35.3-44.9); Hemoglobin 8.5 g/dL (11.5-15.4); Lymphocytes # 1.8 K/mcL (0.6-4.6); Lymphocytes % 10.4 %; Mean Corpuscular HGB Conc 30.9 g/dL (31.6-35.5); Mean Corpuscular Hemoglobin 30.4 pg (28.0-33.3); Mean Corpuscular Volume 98.2 fL (83.0-100.0); Mean Platelet Volume 10.1 fL (9.4-12.4); Monocytes # 1.2 K/mcL (0.0-1.3); Monocytes % 6.9 %; Neutrophils # 14.2 K/mcL (1.6-8.9); Platelet Count 378 K/mcL (140-400); Red Cell Distribution Width 18.6 % (11.5-14.5); Segmented Neutrophils % 81.1 %; White Blood Count 17.5 K/mcL (4.3-11.1)
[2021-08-15 03:04] LABS: BUN/Creatinine Ratio 38 (6-26); Blood Urea Nitrogen 12 mg/dL (8-23); Calcium 8.9 mg/dL (8.6-10.3); Carbon Dioxide 25 mEq/L (23-29); Chloride 102 mEq/L (98-107); Glucose 185 mg/dL (70-105); Magnesium 1.5 mg/dL (1.6-2.6); Osmolality,Calculated 285 (280-300); Phosphorous 3.1 mg/dL (2.7-4.5); Potassium 4.1 mEq/L (3.5-5.1); Sodium 135 mEq/L (136-145); eGFR For African Americans > 60 (> 60); eGFR For Non-African Americans > 60 (> 60)
[2021-08-15] MEDS: Ipratropium 1 PUFF INHALER IH SCH ×6 (03:55→23:21)
[2021-08-15] MEDS: Ascorbic Acid 500 MG TABLET GTUBE SCH ×2 (08:51→16:56)
[2021-08-15] MEDS: Thiamine (B-1) 100 MG TABLET GTUBE SCH (08:51)
[2021-08-15] MEDS: Ferrous Sulfate Oral Soln 300 MG/5 ML UDC GTUBE SCH ×2 (08:51→16:56)
[2021-08-15] MEDS: Apixaban 5 MG TABLET GTUBE SCH ×2 (08:51→21:12)
[2021-08-15] MEDS: Cyanocobalamin (B-12) 1,000 MCG TABLET GTUBE SCH (08:51)
[2021-08-15] MEDS: Cholecalciferol (D-3) 1,000 UNIT (25MCG) TABLET GTUBE SCH (08:51)
[2021-08-15] MEDS: Magnesium Oxide 400 MG TABLET GTUBE SCH (08:51)
[2021-08-15] MEDS: Insulin LISPRO 300 UNITS/3 ML VIAL SUBQ SCH ×4 (08:52→17:11)
[2021-08-15] MEDS: Celecoxib 200 MG CAPSULE PO SCH (11:40)
[2021-08-15] MEDS ORDERED: Metoclopramide 10 MG/2 ML VIAL IVP PRN (14:33)
[2021-08-16] MEDS: Insulin LISPRO 300 UNITS/3 ML VIAL SUBQ SCH ×4 (00:13→18:10)
[2021-08-16 03:43] LABS: Basophils % 0.1 %; Eosinophils # 0.1 K/mcL (0.0-0.6); Eosinophils % 0.8 %; Hematocrit 25.2 % (35.3-44.9); Immature Granulocytes % 0.8 % (0-4); Lymphocytes # 1.9 K/mcL (0.6-4.6); Lymphocytes % 12.5 %; Mean Corpuscular HGB Conc 31.7 g/dL (31.6-35.5); Mean Corpuscular Hemoglobin 30.9 pg (28.0-33.3); Mean Corpuscular Volume 97.3 fL (83.0-100.0); Mean Platelet Volume 10.2 fL (9.4-12.4); Monocytes # 1.2 K/mcL (0.0-1.3); Neutrophils # 11.9 K/mcL (1.6-8.9); Platelet Count 383 K/mcL (140-400); Red Blood Count 2.59 M/mcL (3.82-4.97); Red Cell Distribution Width 18.1 % (11.5-14.5); Segmented Neutrophils % 77.8 %; White Blood Count 15.3 K/mcL (4.3-11.1)
[2021-08-16] MEDS: Ipratropium 1 PUFF INHALER IH SCH ×7 (03:57→23:47)
[2021-08-16 04:02] LABS: BUN/Creatinine Ratio 30 (6-26); Blood Urea Nitrogen 9 mg/dL (8-23); Calcium 9.2 mg/dL (8.6-10.3); Carbon Dioxide 30 mEq/L (23-29); Chloride 100 mEq/L (98-107); Glucose 185 mg/dL (70-105); Magnesium 1.6 mg/dL (1.6-2.6); Osmolality,Calculated 279 (280-300); Phosphorous 3.2 mg/dL (2.7-4.5); Potassium 4.4 mEq/L (3.5-5.1); Sodium 133 mEq/L (136-145); eGFR For African Americans > 60 (> 60); eGFR For Non-African Americans > 60 (> 60)
[2021-08-16] MEDS: Magnesium Oxide 400 MG TABLET GTUBE SCH (09:05)
[2021-08-16] MEDS: Cyanocobalamin (B-12) 1,000 MCG TABLET GTUBE SCH (09:05)
[2021-08-16] MEDS: Thiamine (B-1) 100 MG TABLET GTUBE SCH (09:05)
[2021-08-16] MEDS: Ascorbic Acid 500 MG TABLET GTUBE SCH ×2 (09:05→18:10)
[2021-08-16] MEDS: Apixaban 5 MG TABLET GTUBE SCH ×2 (09:05→19:40)
[2021-08-16] MEDS: Cholecalciferol (D-3) 1,000 UNIT (25MCG) TABLET GTUBE SCH (09:06)
[2021-08-16] MEDS: Ferrous Sulfate Oral Soln 300 MG/5 ML UDC GTUBE SCH ×2 (09:06→18:11)
[2021-08-17] MEDS: Insulin LISPRO 300 UNITS/3 ML VIAL SUBQ SCH ×5 (01:14→23:59)
[2021-08-17] MEDS: Ipratropium 1 PUFF INHALER IH SCH ×6 (03:53→23:42)
[2021-08-17 05:26] LABS: Basophils % 0.1 %; Eosinophils # 0.2 K/mcL (0.0-0.6); Eosinophils % 1.4 %; Hematocrit 27.1 % (35.3-44.9); Hemoglobin 8.1 g/dL (11.5-15.4); Immature Granulocytes % 0.8 % (0-4); Lymphocytes # 2.2 K/mcL (0.6-4.6); Lymphocytes % 16.1 %; Mean Corpuscular HGB Conc 29.9 g/dL (31.6-35.5); Mean Corpuscular Hemoglobin 29.3 pg (28.0-33.3); Mean Corpuscular Volume 98.2 fL (83.0-100.0); Mean Platelet Volume 10.4 fL (9.4-12.4); Monocytes # 1.3 K/mcL (0.0-1.3); Monocytes % 9.9 %; Neutrophils # 9.6 K/mcL (1.6-8.9); Platelet Count 426 K/mcL (140-400); Red Blood Count 2.76 M/mcL (3.82-4.97); Red Cell Distribution Width 17.7 % (11.5-14.5); Segmented Neutrophils % 71.7 %; White Blood Count 13.5 K/mcL (4.3-11.1)
[2021-08-17 05:34] LABS: BUN/Creatinine Ratio 27 (6-26); Blood Urea Nitrogen 8 mg/dL (8-23); Calcium 9.2 mg/dL (8.6-10.3); Carbon Dioxide 28 mEq/L (23-29); Chloride 99 mEq/L (98-107); Glucose 205 mg/dL (70-105); Magnesium 1.5 mg/dL (1.6-2.6); Osmolality,Calculated 278 (280-300); Phosphorous 3.6 mg/dL (2.7-4.5); Potassium 4.4 mEq/L (3.5-5.1); Sodium 132 mEq/L (136-145); eGFR For African Americans > 60 (> 60); eGFR For Non-African Americans > 60 (> 60)
[2021-08-17] MEDS: Cholecalciferol (D-3) 1,000 UNIT (25MCG) TABLET GTUBE SCH (10:06)
[2021-08-17] MEDS: Thiamine (B-1) 100 MG TABLET GTUBE SCH (10:07)
[2021-08-17] MEDS: Cyanocobalamin (B-12) 1,000 MCG TABLET GTUBE SCH (10:07)
[2021-08-17] MEDS: Ferrous Sulfate Oral Soln 300 MG/5 ML UDC GTUBE SCH ×2 (10:07→15:57)
[2021-08-17] MEDS: Apixaban 5 MG TABLET GTUBE SCH ×2 (10:07→21:01)
[2021-08-17] MEDS: Ascorbic Acid 500 MG TABLET GTUBE SCH ×2 (10:08→15:57)
[2021-08-17] MEDS: Magnesium Oxide 400 MG TABLET GTUBE SCH (10:08)
[2021-08-18] MEDS: Ipratropium 1 PUFF INHALER IH SCH ×6 (03:51→19:46)
[2021-08-18 04:57] LABS: Basophils % 0.3 %; Eosinophils # 0.2 K/mcL (0.0-0.6); Eosinophils % 1.7 %; Hematocrit 26.4 % (35.3-44.9); Hemoglobin 8.1 g/dL (11.5-15.4); Immature Granulocytes % 0.6 % (0-4); Lymphocytes # 2.1 K/mcL (0.6-4.6); Lymphocytes % 17.6 %; Mean Corpuscular HGB Conc 30.7 g/dL (31.6-35.5); Mean Corpuscular Hemoglobin 29.9 pg (28.0-33.3); Mean Corpuscular Volume 97.4 fL (83.0-100.0); Mean Platelet Volume 10.2 fL (9.4-12.4); Monocytes # 1.4 K/mcL (0.0-1.3); Monocytes % 11.3 %; Neutrophils # 8.3 K/mcL (1.6-8.9); Platelet Count 508 K/mcL (140-400); Red Blood Count 2.71 M/mcL (3.82-4.97); Red Cell Distribution Width 17.3 % (11.5-14.5); Segmented Neutrophils % 68.5 %; White Blood Count 12.1 K/mcL (4.3-11.1)
[2021-08-18 05:11] LABS: BUN/Creatinine Ratio 24 (6-26); Blood Urea Nitrogen 7 mg/dL (8-23); Calcium 9.5 mg/dL (8.6-10.3); Carbon Dioxide 28 mEq/L (23-29); Chloride 98 mEq/L (98-107); Glucose 159 mg/dL (70-105); Magnesium 1.7 mg/dL (1.6-2.6); Osmolality,Calculated 275 (280-300); Phosphorous 3.7 mg/dL (2.7-4.5); Potassium 4.7 mEq/L (3.5-5.1); Sodium 132 mEq/L (136-145); eGFR For African Americans > 60 (> 60); eGFR For Non-African Americans > 60 (> 60)
[2021-08-18] MEDS: Insulin LISPRO 300 UNITS/3 ML VIAL SUBQ SCH ×4 (05:31→23:46)
[2021-08-18] MEDS: Cyanocobalamin (B-12) 1,000 MCG TABLET GTUBE SCH (09:25)
[2021-08-18] MEDS: Apixaban 5 MG TABLET GTUBE SCH ×2 (09:25→21:45)
[2021-08-18] MEDS: Thiamine (B-1) 100 MG TABLET GTUBE SCH (09:26)
[2021-08-18] MEDS: Ascorbic Acid 500 MG TABLET GTUBE SCH ×2 (09:26→18:00)
[2021-08-18] MEDS: Ferrous Sulfate Oral Soln 300 MG/5 ML UDC GTUBE SCH ×2 (09:26→18:01)
[2021-08-18] MEDS: Cholecalciferol (D-3) 1,000 UNIT (25MCG) TABLET GTUBE SCH (09:26)
[2021-08-18] MEDS: Magnesium Oxide 400 MG TABLET GTUBE SCH (09:26)
[2021-08-18] MEDS ORDERED: Ipratropium 1 PUFF INHALER IH PRN (19:50)
[2021-08-19] MEDS: Melatonin 3 MG TABLET GTUBE PRN ×2 (00:50→21:42)
[2021-08-19 04:37] LABS: Basophils % 0.3 %; Eosinophils # 0.2 K/mcL (0.0-0.6); Eosinophils % 1.7 %; Hematocrit 25.6 % (35.3-44.9); Immature Granulocytes % 0.4 % (0-4); Lymphocytes # 2.7 K/mcL (0.6-4.6); Lymphocytes % 25.8 %; Mean Corpuscular HGB Conc 31.3 g/dL (31.6-35.5); Mean Corpuscular Hemoglobin 30.3 pg (28.0-33.3); Mean Platelet Volume 9.9 fL (9.4-12.4); Monocytes # 1.4 K/mcL (0.0-1.3); Monocytes % 13.2 %; Neutrophils # 6.2 K/mcL (1.6-8.9); Platelet Count 488 K/mcL (140-400); Red Blood Count 2.64 M/mcL (3.82-4.97); Red Cell Distribution Width 17.1 % (11.5-14.5); Segmented Neutrophils % 58.6 %; White Blood Count 10.5 K/mcL (4.3-11.1)
[2021-08-19 04:45] LABS: Alanine Aminotransferase 12 Units/L (7-52); Albumin 2.9 g/dL (3.5-5.7); Alkaline Phosphatase 158 Units/L (34-104); Aspartate Amino Transferase 14 Units/L (13-39); BUN/Creatinine Ratio 28 (6-26); Bilirubin,Total 0.3 mg/dL (0.3-1.0); Blood Urea Nitrogen 10 mg/dL (8-23); Calcium 9.4 mg/dL (8.6-10.3); Carbon Dioxide 30 mEq/L (23-29); Chloride 96 mEq/L (98-107); Glucose 211 mg/dL (70-105); Osmolality,Calculated 277 (280-300); Potassium 4.7 mEq/L (3.5-5.1); Sodium 131 mEq/L (136-145); Total Protein 5.9 g/dL (6.4-8.9); eGFR For African Americans > 60 (> 60); eGFR For Non-African Americans > 60 (> 60)
[2021-08-19] MEDS: Insulin LISPRO 300 UNITS/3 ML VIAL SUBQ SCH ×5 (05:55→23:45)
[2021-08-19] MEDS: Ascorbic Acid 500 MG TABLET GTUBE SCH ×2 (08:43→16:36)
[2021-08-19] MEDS: Thiamine (B-1) 100 MG TABLET GTUBE SCH (08:43)
[2021-08-19] MEDS: Apixaban 5 MG TABLET GTUBE SCH ×2 (08:43→19:48)
[2021-08-19] MEDS: Ferrous Sulfate Oral Soln 300 MG/5 ML UDC GTUBE SCH ×2 (08:43→16:36)
[2021-08-19] MEDS: Magnesium Oxide 400 MG TABLET GTUBE SCH (08:43)
[2021-08-19] MEDS: Cholecalciferol (D-3) 1,000 UNIT (25MCG) TABLET GTUBE SCH (08:44)
[2021-08-19] MEDS: Cyanocobalamin (B-12) 1,000 MCG TABLET GTUBE SCH (08:44)
[2021-08-19] MEDS ORDERED: Gadolinium Contrast Agent (WT Based) IV PRN (14:32)
[2021-08-20] MEDS: Insulin LISPRO 300 UNITS/3 ML VIAL SUBQ SCH ×6 (03:40→22:19)
[2021-08-20 05:51] LABS: Basophils # 0.1 K/mcL (0.0-0.2); Basophils % 0.5 %; Eosinophils # 0.2 K/mcL (0.0-0.6); Eosinophils % 1.7 %; Hemoglobin 8.3 g/dL (11.5-15.4); Immature Granulocytes % 0.5 % (0-4); Lymphocytes # 2.7 K/mcL (0.6-4.6); Lymphocytes % 27.9 %; Mean Corpuscular HGB Conc 31.9 g/dL (31.6-35.5); Mean Corpuscular Hemoglobin 31.1 pg (28.0-33.3); Mean Corpuscular Volume 97.4 fL (83.0-100.0); Mean Platelet Volume 10.3 fL (9.4-12.4); Monocytes % 10.1 %; Neutrophils # 5.8 K/mcL (1.6-8.9); Platelet Count 507 K/mcL (140-400); Red Blood Count 2.67 M/mcL (3.82-4.97); Segmented Neutrophils % 59.3 %; White Blood Count 9.7 K/mcL (4.3-11.1)
[2021-08-20 06:08] LABS: Alanine Aminotransferase 14 Units/L (7-52); Albumin 3.1 g/dL (3.5-5.7); Alkaline Phosphatase 156 Units/L (34-104); Aspartate Amino Transferase 15 Units/L (13-39); BUN/Creatinine Ratio 29 (6-26); Bilirubin,Total 0.3 mg/dL (0.3-1.0); Blood Urea Nitrogen 10 mg/dL (8-23); Calcium 9.8 mg/dL (8.6-10.3); Carbon Dioxide 28 mEq/L (23-29); Chloride 96 mEq/L (98-107); Globulin 3.2 g/dL (2.4-3.5); Glucose 200 mg/dL (70-105); Magnesium 1.5 mg/dL (1.6-2.6); Osmolality,Calculated 277 (280-300); Phosphorous 4.2 mg/dL (2.7-4.5); Potassium 4.3 mEq/L (3.5-5.1); Sodium 131 mEq/L (136-145); Total Protein 6.3 g/dL (6.4-8.9); eGFR For African Americans > 60 (> 60); eGFR For Non-African Americans > 60 (> 60)
[2021-08-20] MEDS: Thiamine (B-1) 100 MG TABLET GTUBE SCH (08:04)
[2021-08-20] MEDS: Ascorbic Acid 500 MG TABLET GTUBE SCH ×2 (08:04→16:23)
[2021-08-20] MEDS: Ferrous Sulfate Oral Soln 300 MG/5 ML UDC GTUBE SCH ×2 (08:04→16:23)
[2021-08-20] MEDS: Magnesium Oxide 400 MG TABLET GTUBE SCH (08:04)
[2021-08-20] MEDS: Cyanocobalamin (B-12) 1,000 MCG TABLET GTUBE SCH (08:04)
[2021-08-20] MEDS: Apixaban 5 MG TABLET GTUBE SCH ×2 (08:04→20:16)
[2021-08-20] MEDS: Cholecalciferol (D-3) 1,000 UNIT (25MCG) TABLET GTUBE SCH (08:04)
[2021-08-20] MEDS: Melatonin 3 MG TABLET GTUBE PRN (22:18)
[2021-08-21] MEDS ORDERED: Acetaminophen IV 1,000 MG/100 ML BAG IVPB ONE (01:19)
[2021-08-21] MEDS: Insulin LISPRO 300 UNITS/3 ML VIAL SUBQ SCH ×7 (01:38→21:54)
[2021-08-21] MEDS ORDERED: *HR* LORazepam 2 MG/ML VIAL IVP ONE (03:06)
[2021-08-21] MEDS ORDERED: Haloperidol Lactate 5 MG/ML VIAL IVP ONE (03:14)
[2021-08-21 03:45] LABS: Basophils % 0.3 %; Eosinophils # 0.2 K/mcL (0.0-0.6); Eosinophils % 1.8 %; Hematocrit 25.8 % (35.3-44.9); Hemoglobin 7.8 g/dL (11.5-15.4); Immature Granulocytes % 0.8 % (0-4); Lymphocytes % 22.9 %; Mean Corpuscular HGB Conc 30.2 g/dL (31.6-35.5); Mean Corpuscular Hemoglobin 28.9 pg (28.0-33.3); Mean Corpuscular Volume 95.6 fL (83.0-100.0); Mean Platelet Volume 9.4 fL (9.4-12.4); Monocytes % 11.2 %; Neutrophils # 5.5 K/mcL (1.6-8.9); Platelet Count 458 K/mcL (140-400); White Blood Count 8.7 K/mcL (4.3-11.1)
[2021-08-21 04:16] LABS: BUN/Creatinine Ratio 33 (6-26); Blood Urea Nitrogen 11 mg/dL (8-23); Calcium 9.4 mg/dL (8.6-10.3); Carbon Dioxide 27 mEq/L (23-29); Chloride 96 mEq/L (98-107); Glucose 209 mg/dL (70-105); Osmolality,Calculated 280 (280-300); Potassium 4.3 mEq/L (3.5-5.1); Sodium 132 mEq/L (136-145); eGFR For African Americans > 60 (> 60); eGFR For Non-African Americans > 60 (> 60)
[2021-08-21] MEDS: Apixaban 5 MG TABLET GTUBE SCH ×2 (07:55→22:15)
[2021-08-21] MEDS: Thiamine (B-1) 100 MG TABLET GTUBE SCH (07:55)
[2021-08-21] MEDS: Cholecalciferol (D-3) 1,000 UNIT (25MCG) TABLET GTUBE SCH (07:55)
[2021-08-21] MEDS: Ascorbic Acid 500 MG TABLET GTUBE SCH ×2 (07:55→17:09)
[2021-08-21] MEDS: Magnesium Oxide 400 MG TABLET GTUBE SCH (07:55)
[2021-08-21] MEDS: Ferrous Sulfate Oral Soln 300 MG/5 ML UDC GTUBE SCH ×2 (07:55→17:09)
[2021-08-21] MEDS: Cyanocobalamin (B-12) 1,000 MCG TABLET GTUBE SCH (07:55)
[2021-08-22] MEDS: Insulin LISPRO 300 UNITS/3 ML VIAL SUBQ SCH ×6 (02:27→21:04)
[2021-08-22 08:12] LABS: Purkinje Cell/ANNA IgG Scrn NONE DETECTED (None Detected)
[2021-08-22] MEDS: Apixaban 5 MG TABLET GTUBE SCH ×2 (10:05→21:03)
[2021-08-22] MEDS: Ascorbic Acid 500 MG TABLET GTUBE SCH ×2 (10:06→16:07)
[2021-08-22] MEDS: Cyanocobalamin (B-12) 1,000 MCG TABLET GTUBE SCH (10:06)
[2021-08-22] MEDS: Thiamine (B-1) 100 MG TABLET GTUBE SCH (10:06)
[2021-08-22] MEDS: Magnesium Oxide 400 MG TABLET GTUBE SCH (10:06)
[2021-08-22] MEDS: Cholecalciferol (D-3) 1,000 UNIT (25MCG) TABLET GTUBE SCH (10:07)
[2021-08-22] MEDS: Ferrous Sulfate Oral Soln 300 MG/5 ML UDC GTUBE SCH ×2 (10:12→16:07)
[2021-08-22 16:55] LABS: Basophils # 0.1 K/mcL (0.0-0.2); Basophils % 0.6 %; Eosinophils # 0.1 K/mcL (0.0-0.6); Eosinophils % 1.4 %; Hematocrit 26.1 % (35.3-44.9); Lymphocytes # 2.8 K/mcL (0.6-4.6); Lymphocytes % 27.3 %; Mean Corpuscular HGB Conc 30.7 g/dL (31.6-35.5); Mean Corpuscular Hemoglobin 29.1 pg (28.0-33.3); Mean Corpuscular Volume 94.9 fL (83.0-100.0); Mean Platelet Volume 9.2 fL (9.4-12.4); Neutrophils # 6.1 K/mcL (1.6-8.9); Platelet Count 457 K/mcL (140-400); Red Blood Count 2.75 M/mcL (3.82-4.97); Red Cell Distribution Width 17.1 % (11.5-14.5); Segmented Neutrophils % 59.7 %; White Blood Count 10.1 K/mcL (4.3-11.1)
[2021-08-22 17:12] LABS: BUN/Creatinine Ratio 36 (6-26); Blood Urea Nitrogen 13 mg/dL (8-23); Calcium 9.3 mg/dL (8.6-10.3); Carbon Dioxide 38 mEq/L (23-29); Chloride 97 mEq/L (98-107); Glucose 133 mg/dL (70-105); Osmolality,Calculated 274 (280-300); Potassium 4.4 mEq/L (3.5-5.1); Sodium 131 mEq/L (136-145); eGFR For African Americans > 60 (> 60); eGFR For Non-African Americans > 60 (> 60)
[2021-08-22] MEDS: Melatonin 3 MG TABLET GTUBE PRN (21:03)
[2021-08-22 22:06] LABS: ABG Base Excess 2 mEq/L (-2 to 3); ABG HCO3 27 mEq/L (21-27); ABG Oxygen Saturation 87 % (95-98); ABG PCO2 41 mmHg (35-45); ABG PH 7.43 pH Units (7.32-7.45); ABG PO2 52 mmHg (85-104); ABG TCO2 28 mEq/L (20-26)
[2021-08-23] MEDS ORDERED: Isovue-370 500 ML BOTTLE IVP ONE (00:24)
[2021-08-23] MEDS: Insulin LISPRO 300 UNITS/3 ML VIAL SUBQ SCH ×6 (02:09→21:42)
[2021-08-23] MEDS ORDERED: Acetaminophen IV 1,000 MG/100 ML BAG IVPB ONE ×3 (03:06→23:47)
[2021-08-23 03:53] LABS: Basophils # 0.1 K/mcL (0.0-0.2); Basophils % 0.3 %; Eosinophils # 0.1 K/mcL (0.0-0.6); Eosinophils % 0.6 %; Hematocrit 25.6 % (35.3-44.9); Hemoglobin 8.1 g/dL (11.5-15.4); Immature Granulocytes % 0.6 % (0-4); Lymphocytes # 2.1 K/mcL (0.6-4.6); Lymphocytes % 14.1 %; Mean Corpuscular HGB Conc 31.6 g/dL (31.6-35.5); Mean Corpuscular Hemoglobin 30.7 pg (28.0-33.3); Mean Platelet Volume 9.7 fL (9.4-12.4); Monocytes # 0.9 K/mcL (0.0-1.3); Monocytes % 5.9 %; Neutrophils # 11.6 K/mcL (1.6-8.9); Platelet Count 405 K/mcL (140-400); Red Blood Count 2.64 M/mcL (3.82-4.97); Red Cell Distribution Width 17.2 % (11.5-14.5); Segmented Neutrophils % 78.5 %; White Blood Count 14.8 K/mcL (4.3-11.1)
[2021-08-23] MEDS: *HR* Metoprolol 5 MG/5 ML VIAL IVP PRN ×4 (04:08→09:45)
[2021-08-23 04:21] LABS: BUN/Creatinine Ratio 36 (6-26); Blood Urea Nitrogen 13 mg/dL (8-23); Calcium 8.8 mg/dL (8.6-10.3); Carbon Dioxide 25 mEq/L (23-29); Chloride 93 mEq/L (98-107); Glucose 264 mg/dL (70-105); Osmolality,Calculated 275 (280-300); Potassium 4.8 mEq/L (3.5-5.1); Sodium 128 mEq/L (136-145); eGFR For African Americans > 60 (> 60); eGFR For Non-African Americans > 60 (> 60)
[2021-08-23] MEDS ORDERED: 0.9 % Sodium Chloride 500 ML IVC ONE (04:48)
[2021-08-23] MEDS ORDERED: 0.9 % Sodium Chloride 1,000 ML IVC ONE ×2 (09:24→10:34)
[2021-08-23] MEDS ORDERED: *HR* Metoprolol 5 MG/5 ML VIAL IVP ONE (09:28)
[2021-08-23] MEDS ORDERED: 0.9 % Sodium Chloride 1,000 ML ONE (09:28)
[2021-08-23] MEDS: MetroNIDAZOLE 500 MG/100 ML 500 MG/100 ML BAG IVPB SCH ×2 (09:52→17:12)
[2021-08-23] MEDS: Cefepime HCl 2,000 MG in 0.9 % Sodium Chloride Mini Bag 100 ML IVPB SCH ×2 (09:53→17:12)
[2021-08-23] MEDS: Ferrous Sulfate Oral Soln 300 MG/5 ML UDC GTUBE SCH ×2 (10:39→15:49)
[2021-08-23] MEDS: Apixaban 5 MG TABLET GTUBE SCH ×2 (10:39→19:47)
[2021-08-23] MEDS: Ascorbic Acid 500 MG TABLET GTUBE SCH ×2 (10:39→15:49)
[2021-08-23] MEDS: Cyanocobalamin (B-12) 1,000 MCG TABLET GTUBE SCH (10:39)
[2021-08-23] MEDS: Cholecalciferol (D-3) 1,000 UNIT (25MCG) TABLET GTUBE SCH (10:39)
[2021-08-23] MEDS: Thiamine (B-1) 100 MG TABLET GTUBE SCH (10:39)
[2021-08-23] MEDS: Magnesium Oxide 400 MG TABLET GTUBE SCH (10:39)
[2021-08-23] MEDS: Ringers Solution, Lactated 1,000 ML IVC SCH ×2 (12:50→22:56)
[2021-08-23] MEDS: Levalbuterol Neb 0.63 MG/3 ML IH SCH ×2 (15:18→20:16)
[2021-08-23] MEDS: Ipratropium Neb 0.5 MG NEBULIZER IH SCH ×2 (15:18→20:15)
[2021-08-23] MEDS ORDERED: 0.9 % Sodium Chloride 1,000 ML IV ONE (23:57)
[2021-08-24] MEDS ORDERED: 0.9 % Sodium Chloride 1,000 ML ONE (00:01)
[2021-08-24] MEDS: Insulin LISPRO 300 UNITS/3 ML VIAL SUBQ SCH ×7 (00:49→22:44)
[2021-08-24] MEDS: Cefepime HCl 2,000 MG in 0.9 % Sodium Chloride Mini Bag 100 ML IVPB SCH ×3 (02:08→17:46)
[2021-08-24] MEDS: Levalbuterol Neb 0.63 MG/3 ML IH SCH ×4 (04:14→20:34)
[2021-08-24] MEDS: Ipratropium Neb 0.5 MG NEBULIZER IH SCH ×4 (04:14→20:34)
[2021-08-24] MEDS: MetroNIDAZOLE 500 MG/100 ML 500 MG/100 ML BAG IVPB SCH ×3 (05:07→17:46)
[2021-08-24 05:22] LABS: Basophils % 0.2 %; Eosinophils # 0.1 K/mcL (0.0-0.6); Eosinophils % 0.6 %; Hematocrit 22.1 % (35.3-44.9); Hemoglobin 7.1 g/dL (11.5-15.4); Immature Granulocytes % 1.4 % (0-4); Lymphocytes # 2.1 K/mcL (0.6-4.6); Lymphocytes % 11.2 %; Mean Corpuscular HGB Conc 32.1 g/dL (31.6-35.5); Mean Corpuscular Hemoglobin 30.7 pg (28.0-33.3); Mean Corpuscular Volume 95.7 fL (83.0-100.0); Mean Platelet Volume 10.6 fL (9.4-12.4); Monocytes # 0.9 K/mcL (0.0-1.3); Monocytes % 4.8 %; Neutrophils # 15.5 K/mcL (1.6-8.9); Platelet Count 338 K/mcL (140-400); Red Blood Count 2.31 M/mcL (3.82-4.97); Segmented Neutrophils % 81.8 %; White Blood Count 18.9 K/mcL (4.3-11.1)
[2021-08-24 06:32] LABS: Alanine Aminotransferase 12 Units/L (7-52); Albumin 2.3 g/dL (3.5-5.7); Albumin/Globulin Ratio 0.7 (1.1-2.2); Alkaline Phosphatase 124 Units/L (34-104); Aspartate Amino Transferase 37 Units/L (13-39); BUN/Creatinine Ratio 41 (6-26); Bilirubin,Total 0.4 mg/dL (0.3-1.0); Blood Urea Nitrogen 11 mg/dL (8-23); Calcium 8.3 mg/dL (8.6-10.3); Carbon Dioxide 22 mEq/L (23-29); Chloride 98 mEq/L (98-107); Globulin 3.1 g/dL (2.4-3.5); Glucose 167 mg/dL (70-105); Osmolality,Calculated 269 (280-300); Potassium 4.4 mEq/L (3.5-5.1); Sodium 128 mEq/L (136-145); Total Protein 5.4 g/dL (6.4-8.9); eGFR For African Americans > 60 (> 60); eGFR For Non-African Americans > 60 (> 60)
[2021-08-24] MEDS: Cholecalciferol (D-3) 1,000 UNIT (25MCG) TABLET GTUBE SCH (10:06)
[2021-08-24] MEDS: Thiamine (B-1) 100 MG TABLET GTUBE SCH (10:06)
[2021-08-24] MEDS: Magnesium Oxide 400 MG TABLET GTUBE SCH (10:06)
[2021-08-24] MEDS: Cyanocobalamin (B-12) 1,000 MCG TABLET GTUBE SCH (10:07)
[2021-08-24] MEDS: Apixaban 5 MG TABLET GTUBE SCH ×2 (10:07→19:26)
[2021-08-24] MEDS: Ringers Solution, Lactated 1,000 ML IVC SCH (10:08)
[2021-08-24] MEDS: Ascorbic Acid 500 MG TABLET GTUBE SCH ×2 (10:24→17:45)
[2021-08-24] MEDS: Ferrous Sulfate Oral Soln 300 MG/5 ML UDC GTUBE SCH ×2 (10:24→17:45)
[2021-08-24] MEDS: 0.9 % Sodium Chloride 1,000 ML IVC SCH (14:10)
[2021-08-24] MEDS: Melatonin 3 MG TABLET GTUBE PRN (19:26)
[2021-08-25] MEDS: 0.9 % Sodium Chloride 1,000 ML IVC SCH ×3 (00:17→23:43)
[2021-08-25] MEDS: MetroNIDAZOLE 500 MG/100 ML 500 MG/100 ML BAG IVPB SCH ×3 (01:50→17:53)
[2021-08-25] MEDS: Cefepime HCl 2,000 MG in 0.9 % Sodium Chloride Mini Bag 100 ML IVPB SCH ×3 (01:50→17:53)
[2021-08-25] MEDS: Insulin LISPRO 300 UNITS/3 ML VIAL SUBQ SCH ×6 (04:04→22:00)
[2021-08-25] MEDS: Levalbuterol Neb 0.63 MG/3 ML IH SCH ×4 (04:15→19:26)
[2021-08-25] MEDS: Ipratropium Neb 0.5 MG NEBULIZER IH SCH ×4 (04:15→19:26)
[2021-08-25 04:36] LABS: Basophils % 0.2 %; Eosinophils # 0.1 K/mcL (0.0-0.6); Eosinophils % 0.7 %; Hemoglobin 6.7 g/dL (11.5-15.4); Immature Granulocytes % 2.1 % (0-4); Lymphocytes # 1.9 K/mcL (0.6-4.6); Lymphocytes % 10.6 %; Mean Corpuscular HGB Conc 31.9 g/dL (31.6-35.5); Mean Corpuscular Hemoglobin 31.2 pg (28.0-33.3); Mean Corpuscular Volume 97.7 fL (83.0-100.0); Mean Platelet Volume 9.8 fL (9.4-12.4); Monocytes # 1.1 K/mcL (0.0-1.3); Platelet Count 331 K/mcL (140-400); Red Blood Count 2.15 M/mcL (3.82-4.97); Red Cell Distribution Width 16.7 % (11.5-14.5); Segmented Neutrophils % 80.4 %; White Blood Count 17.4 K/mcL (4.3-11.1)
[2021-08-25 04:52] LABS: BUN/Creatinine Ratio 39 (6-26); Blood Urea Nitrogen 9 mg/dL (8-23); Calcium 8.7 mg/dL (8.6-10.3); Carbon Dioxide 22 mEq/L (23-29); Chloride 103 mEq/L (98-107); Glucose 132 mg/dL (70-105); Osmolality,Calculated 277 (280-300); Potassium 3.5 mEq/L (3.5-5.1); Sodium 133 mEq/L (136-145); eGFR For African Americans > 60 (> 60); eGFR For Non-African Americans > 60 (> 60)
[2021-08-25 06:24] LABS: Basophils % 0.2 %; Eosinophils # 0.1 K/mcL (0.0-0.6); Eosinophils % 0.6 %; Hematocrit 22.6 % (35.3-44.9); Hemoglobin 7.2 g/dL (11.5-15.4); Lymphocytes # 1.5 K/mcL (0.6-4.6); Lymphocytes % 8.5 %; Mean Corpuscular HGB Conc 31.9 g/dL (31.6-35.5); Mean Corpuscular Hemoglobin 31.3 pg (28.0-33.3); Mean Corpuscular Volume 98.3 fL (83.0-100.0); Mean Platelet Volume 10.6 fL (9.4-12.4); Monocytes % 5.7 %; Neutrophils # 14.4 K/mcL (1.6-8.9); Platelet Count 318 K/mcL (140-400); Red Cell Distribution Width 17.2 % (11.5-14.5); White Blood Count 17.1 K/mcL (4.3-11.1)
[2021-08-25] MEDS: Ascorbic Acid 500 MG TABLET GTUBE SCH ×2 (08:36→17:53)
[2021-08-25] MEDS: Magnesium Oxide 400 MG TABLET GTUBE SCH (08:36)
[2021-08-25] MEDS: Cyanocobalamin (B-12) 1,000 MCG TABLET GTUBE SCH (08:36)
[2021-08-25] MEDS: Thiamine (B-1) 100 MG TABLET GTUBE SCH (08:36)
[2021-08-25] MEDS: Apixaban 5 MG TABLET GTUBE SCH ×2 (08:36→23:20)
[2021-08-25] MEDS: Ferrous Sulfate Oral Soln 300 MG/5 ML UDC GTUBE SCH ×2 (08:36→17:53)
[2021-08-25] MEDS: Cholecalciferol (D-3) 1,000 UNIT (25MCG) TABLET GTUBE SCH (08:36)
[2021-08-25 17:21] LABS: CK-MB (CK isoenzymes) 0 % (0-4); CK-MM (CK-isoenzymes) 100 % (96-100)
[2021-08-25] MEDS ORDERED: Famotidine 400 MG/50 ML ORAL SUSPENSION GTUBE SCH (21:00)
[2021-08-26] MEDS: Albumin 25% 25gram/100mL 25 GM/100 ML IV.SOLN IVC SCH ×4 (00:42→04:50)
[2021-08-26] MEDS: Cefepime HCl 2,000 MG in 0.9 % Sodium Chloride Mini Bag 100 ML IVPB SCH ×3 (01:10→17:14)
[2021-08-26] MEDS: MetroNIDAZOLE 500 MG/100 ML 500 MG/100 ML BAG IVPB SCH ×3 (01:17→17:46)
[2021-08-26] MEDS: Levalbuterol Neb 0.63 MG/3 ML IH SCH ×4 (03:35→20:06)
[2021-08-26] MEDS: Ipratropium Neb 0.5 MG NEBULIZER IH SCH ×4 (03:35→20:06)
[2021-08-26 03:41] LABS: BUN/Creatinine Ratio 38 (6-26); Blood Urea Nitrogen 10 mg/dL (8-23); Calcium 9.1 mg/dL (8.6-10.3); Carbon Dioxide 24 mEq/L (23-29); Chloride 107 mEq/L (98-107); Glucose 112 mg/dL (70-105); Osmolality,Calculated 280 (280-300); Potassium 3.5 mEq/L (3.5-5.1); Sodium 135 mEq/L (136-145); eGFR For African Americans > 60 (> 60); eGFR For Non-African Americans > 60 (> 60)
[2021-08-26 03:43] LABS: Basophils % 0.2 %
[2021-08-26 03:45] LABS: Eosinophils # 0.1 K/mcL (0.0-0.6); Eosinophils % 0.9 %; Hematocrit 19.6 % (35.3-44.9); Immature Granulocytes % 1.2 % (0-4); Lymphocytes # 1.1 K/mcL (0.6-4.6); Lymphocytes % 10.8 %; Mean Corpuscular HGB Conc 29.1 g/dL (31.6-35.5); Mean Corpuscular Hemoglobin 28.6 pg (28.0-33.3); Mean Corpuscular Volume 98.5 fL (83.0-100.0); Mean Platelet Volume 9.8 fL (9.4-12.4); Monocytes # 0.8 K/mcL (0.0-1.3); Monocytes % 7.2 %; Nucleated Red Blood Cells 0.2 /100 WBC (0); Platelet Count 276 K/mcL (140-400); Red Blood Count 1.99 M/mcL (3.82-4.97); Red Cell Distribution Width 16.8 % (11.5-14.5); Segmented Neutrophils % 79.7 %; White Blood Count 10.6 K/mcL (4.3-11.1)
[2021-08-26 03:50] LABS: Neutrophils # 8.5 K/mcL (1.6-8.9)
[2021-08-26 03:53] LABS: Hemoglobin 5.7 g/dL (11.5-15.4)
[2021-08-26 04:56] LABS: Hematocrit 19.5 % (35.3-44.9)
[2021-08-26 05:20] LABS: Hemoglobin 5.7 g/dL (11.5-15.4)
[2021-08-26] MEDS: Insulin LISPRO 300 UNITS/3 ML VIAL SUBQ SCH ×6 (07:01→23:19)
[2021-08-26] MEDS ORDERED: Isovue-370 500 ML BOTTLE IVP ONE (07:24)
[2021-08-26] MEDS ORDERED: 0.9 % Sodium Chloride 250 ML ONE (07:29)
[2021-08-26] MEDS: Ferrous Sulfate Oral Soln 300 MG/5 ML UDC GTUBE SCH ×2 (07:43→16:06)
[2021-08-26] MEDS: Cyanocobalamin (B-12) 1,000 MCG TABLET GTUBE SCH (07:44)
[2021-08-26] MEDS: Magnesium Oxide 400 MG TABLET GTUBE SCH (07:44)
[2021-08-26] MEDS: Cholecalciferol (D-3) 1,000 UNIT (25MCG) TABLET GTUBE SCH (07:44)
[2021-08-26] MEDS: Ascorbic Acid 500 MG TABLET GTUBE SCH ×2 (07:44→16:06)
[2021-08-26] MEDS: Thiamine (B-1) 100 MG TABLET GTUBE SCH (07:44)
[2021-08-26] MEDS ORDERED: Famotidine 400 MG/50 ML ORAL SUSPENSION GTUBE SCH (09:00)
[2021-08-26] MEDS: 0.9 % Sodium Chloride 1,000 ML IVC SCH ×2 (09:40→20:36)
[2021-08-26 10:12] LABS: CK Total (Ck Isoenzymes) 38 U/L (20-180); CK-BB (CK isoenzymes) 0 % (0-0)
[2021-08-26 12:26] LABS: Hematocrit 26.1 % (35.3-44.9)
[2021-08-26 12:35] LABS: Hemoglobin 7.8 g/dL (11.5-15.4)
[2021-08-26] MEDS: Pantoprazole 40 MG VIAL IVP SCH (17:15)
[2021-08-26] MEDS: *HR* LORazepam 0.5 MG TABLET GTUBE PRN (17:15)
[2021-08-26] MEDS: *HR* Metoprolol 5 MG/5 ML VIAL IVP PRN (17:58)
[2021-08-26 18:45] LABS: Hematocrit 26.7 % (35.3-44.9); Hemoglobin 8.2 g/dL (11.5-15.4)
[2021-08-27] MEDS: Cefepime HCl 2,000 MG in 0.9 % Sodium Chloride Mini Bag 100 ML IVPB SCH ×3 (02:35→17:26)
[2021-08-27] MEDS: MetroNIDAZOLE 500 MG/100 ML 500 MG/100 ML BAG IVPB SCH ×3 (02:36→17:27)
[2021-08-27 03:22] LABS: Basophils # 0.1 K/mcL (0.0-0.2); Basophils % 0.3 %; Eosinophils % 0.1 %; Hemoglobin 8.6 g/dL (11.5-15.4); Immature Granulocytes % 1.8 % (0-4); Lymphocytes # 2.1 K/mcL (0.6-4.6); Lymphocytes % 9.7 %; Mean Corpuscular HGB Conc 30.7 g/dL (31.6-35.5); Mean Corpuscular Volume 94.3 fL (83.0-100.0); Mean Platelet Volume 9.5 fL (9.4-12.4); Monocytes # 1.7 K/mcL (0.0-1.3); Monocytes % 7.8 %; Platelet Count 407 K/mcL (140-400); Red Blood Count 2.97 M/mcL (3.82-4.97); Red Cell Distribution Width 17.6 % (11.5-14.5); Segmented Neutrophils % 80.3 %
[2021-08-27 03:23] LABS: White Blood Count 21.2 K/mcL (4.3-11.1)
[2021-08-27 03:41] LABS: BUN/Creatinine Ratio 33 (6-26); Blood Urea Nitrogen 10 mg/dL (8-23); Calcium 9.6 mg/dL (8.6-10.3); Carbon Dioxide 23 mEq/L (23-29); Chloride 109 mEq/L (98-107); Glucose 188 mg/dL (70-105); Osmolality,Calculated 290 (280-300); Potassium 3.3 mEq/L (3.5-5.1); Sodium 138 mEq/L (136-145); eGFR For African Americans > 60 (> 60); eGFR For Non-African Americans > 60 (> 60)
[2021-08-27] MEDS: Ipratropium Neb 0.5 MG NEBULIZER IH SCH ×4 (03:57→19:38)
[2021-08-27] MEDS: Levalbuterol Neb 0.63 MG/3 ML IH SCH ×4 (03:57→19:38)
[2021-08-27] MEDS: Insulin LISPRO 300 UNITS/3 ML VIAL SUBQ SCH ×6 (03:59→23:58)
[2021-08-27] MEDS: Pantoprazole 40 MG VIAL IVP SCH ×2 (05:17→17:25)
[2021-08-27] MEDS: Cyanocobalamin (B-12) 1,000 MCG TABLET GTUBE SCH (10:30)
[2021-08-27] MEDS: Cholecalciferol (D-3) 1,000 UNIT (25MCG) TABLET GTUBE SCH (10:30)
[2021-08-27] MEDS: Thiamine (B-1) 100 MG TABLET GTUBE SCH (10:30)
[2021-08-27] MEDS: Magnesium Oxide 400 MG TABLET GTUBE SCH (10:31)
[2021-08-27] MEDS: Ferrous Sulfate Oral Soln 300 MG/5 ML UDC GTUBE SCH ×2 (10:43→15:34)
[2021-08-27 11:07] LABS: ABG Base Excess -6 mEq/L (-2 to 3); ABG HCO3 26 mEq/L (21-27); ABG Oxygen Saturation 99 % (95-98); ABG PCO2 90 mmHg (35-45); ABG PH 7.06 pH Units (7.32-7.45); ABG PO2 186 mmHg (85-104); ABG TCO2 28 mEq/L (20-26)
[2021-08-27] MEDS: Ascorbic Acid 500 MG TABLET GTUBE SCH ×2 (11:22→15:34)
[2021-08-27 14:18] LABS: ABG Base Excess -4 mEq/L (-2 to 3); ABG HCO3 24 mEq/L (21-27); ABG Oxygen Saturation 97 % (95-98); ABG PCO2 56 mmHg (35-45); ABG PH 7.24 pH Units (7.32-7.45); ABG PO2 110 mmHg (85-104); ABG TCO2 26 mEq/L (20-26)
[2021-08-28] MEDS: Cefepime HCl 2,000 MG in 0.9 % Sodium Chloride Mini Bag 100 ML IVPB SCH ×3 (02:12→22:24)
[2021-08-28] MEDS: *HR* LORazepam 0.5 MG TABLET GTUBE PRN (02:12)
[2021-08-28] MEDS: MetroNIDAZOLE 500 MG/100 ML 500 MG/100 ML BAG IVPB SCH ×3 (02:12→18:24)
[2021-08-28] MEDS: Insulin LISPRO 300 UNITS/3 ML VIAL SUBQ SCH ×5 (03:07→23:53)
[2021-08-28 03:22] LABS: Basophils # 0.1 K/mcL (0.0-0.2); Basophils % 0.3 %; Eosinophils % 0.2 %; Hematocrit 26.8 % (35.3-44.9); Lymphocytes # 1.9 K/mcL (0.6-4.6); Lymphocytes % 11.9 %; Mean Corpuscular HGB Conc 29.9 g/dL (31.6-35.5); Mean Corpuscular Hemoglobin 28.5 pg (28.0-33.3); Mean Corpuscular Volume 95.4 fL (83.0-100.0); Neutrophils # 12.8 K/mcL (1.6-8.9); Nucleated Red Blood Cells 0.1 /100 WBC (0); Platelet Count 388 K/mcL (140-400); Red Blood Count 2.81 M/mcL (3.82-4.97); Red Cell Distribution Width 17.7 % (11.5-14.5); Segmented Neutrophils % 78.6 %; White Blood Count 16.3 K/mcL (4.3-11.1)
[2021-08-28 03:37] LABS: BUN/Creatinine Ratio 41 (6-26); Blood Urea Nitrogen 14 mg/dL (8-23); Calcium 10.6 mg/dL (8.6-10.3); Carbon Dioxide 23 mEq/L (23-29); Chloride 110 mEq/L (98-107); Glucose 165 mg/dL (70-105); Magnesium 1.7 mg/dL (1.6-2.6); Osmolality,Calculated 294 (280-300); Phosphorous 1.5 mg/dL (2.7-4.5); Potassium 3.6 mEq/L (3.5-5.1); Sodium 140 mEq/L (136-145); eGFR For African Americans > 60 (> 60); eGFR For Non-African Americans > 60 (> 60)
[2021-08-28] MEDS: Levalbuterol Neb 0.63 MG/3 ML IH SCH ×4 (04:24→19:55)
[2021-08-28] MEDS: Ipratropium Neb 0.5 MG NEBULIZER IH SCH ×4 (04:25→19:54)
[2021-08-28 04:38] LABS: ABG Base Excess -2 mEq/L (-2 to 3); ABG HCO3 24 mEq/L (21-27); ABG Oxygen Saturation 96 % (95-98); ABG PCO2 46 mmHg (35-45); ABG PH 7.33 pH Units (7.32-7.45); ABG PO2 84 mmHg (85-104); ABG TCO2 26 mEq/L (20-26); Blood Gas Modality Avaps; Blood Gas VT 420 cc
[2021-08-28] MEDS: Pantoprazole 40 MG VIAL IVP SCH ×2 (05:13→18:24)
[2021-08-28] MEDS: Ferrous Sulfate Oral Soln 300 MG/5 ML UDC GTUBE SCH ×2 (09:29→18:23)
[2021-08-28] MEDS: Thiamine (B-1) 100 MG TABLET GTUBE SCH (09:30)
[2021-08-28] MEDS: Cholecalciferol (D-3) 1,000 UNIT (25MCG) TABLET GTUBE SCH (09:30)
[2021-08-28] MEDS: Magnesium Oxide 400 MG TABLET GTUBE SCH (09:30)
[2021-08-28] MEDS: Ascorbic Acid 500 MG TABLET GTUBE SCH ×2 (09:31→18:23)
[2021-08-28] MEDS: Cyanocobalamin (B-12) 1,000 MCG TABLET GTUBE SCH (09:31)
[2021-08-28 11:27] VITALS: PULSE 98; TEMP 97.8
[2021-08-28] MEDS ORDERED: Morphine Sulfate 2 MG/ML SYRINGE IVP PRN (12:51)
[2021-08-28] MEDS: *HR* LORazepam 2 MG/ML VIAL IVP PRN ×2 (13:20→19:46)
[2021-08-28] MEDS: Morphine Sulfate 2 MG/ML SYRINGE IVP PRN ×4 (14:18→21:08)
[2021-08-28] MEDS ORDERED: Scopolamine Patch 1.5 MG PATCH.TD72 TD ONE (20:58)
[2021-08-29] MEDS: Cefepime HCl 2,000 MG in 0.9 % Sodium Chloride Mini Bag 100 ML IVPB SCH (02:03)
[2021-08-29] MEDS: MetroNIDAZOLE 500 MG/100 ML 500 MG/100 ML BAG IVPB SCH (02:03)
[2021-08-29] MEDS: Insulin LISPRO 300 UNITS/3 ML VIAL SUBQ SCH ×2 (02:04→09:50)
[2021-08-29] MEDS: Ipratropium Neb 0.5 MG NEBULIZER IH SCH ×2 (03:34→11:20)
[2021-08-29] MEDS: Levalbuterol Neb 0.63 MG/3 ML IH SCH ×2 (03:35→11:20)
[2021-08-29] MEDS: *HR* LORazepam 2 MG/ML VIAL IVP PRN ×3 (04:46→14:43)
[2021-08-29] MEDS: Morphine Sulfate 2 MG/ML SYRINGE IVP PRN ×5 (04:46→18:30)
[2021-08-29] MEDS: Pantoprazole 40 MG VIAL IVP SCH (05:37)
[2021-08-29] MEDS: Magnesium Oxide 400 MG TABLET GTUBE SCH (10:08)
[2021-08-29] MEDS: Ascorbic Acid 500 MG TABLET GTUBE SCH (10:23)
[2021-08-29] MEDS: Ferrous Sulfate Oral Soln 300 MG/5 ML UDC GTUBE SCH (10:23)
[2021-08-29] MEDS: Thiamine (B-1) 100 MG TABLET GTUBE SCH (10:23)
[2021-08-29] MEDS: Cyanocobalamin (B-12) 1,000 MCG TABLET GTUBE SCH (10:24)
[2021-08-29] MEDS: Cholecalciferol (D-3) 1,000 UNIT (25MCG) TABLET GTUBE SCH (10:24)
[2021-08-29 10:42] VITALS: BP 124/107; O2SAT 70
[2021-08-29] MEDS ORDERED: Atropine Sulfate 1% 40 DROP/2 ML BOTTLE SL PRN (11:11)
[2021-08-29] MEDS ORDERED: Scopolamine Patch 1.5 MG PATCH.TD72 TD SCH (11:15)
[2021-08-31] MEDS ORDERED: Scopolamine Patch 1.5 MG PATCH.TD72 TD SCH (21:00)
== END 2021-08-29 20:47 | disposition expired | DRG 871 ==
LOC: EMEROOARM 14:49 → 3BNU 14:49 → SUATTDRO 08-03 01:11 → 3BNU 08-03 02:27 → 2NNU 08-04 01:38 → SUATTDRO 08-04 15:43 → 2ANU 08-06 13:11 → 2NENU 08-24 22:39
PROVIDERS: ADMIT Internal Medicine; ATTEND Internal Medicine